=== PATIENT | female | born 1975 | race Caucasian/White ===

== ENCOUNTER 2022-09-17 13:57 | Outpatient (REF) | payer OTHER, MEDICAID, SELFPAY ==
--- NOTE | ~2022-09-17 | MR_ITS ---
EXAMINATION: MR BRAIN WITHOUT CONTRAST CLINICAL INFORMATION: Epilepsy COMPARISON: MRI of the brain with and without contrast 05/30/2017 TECHNIQUE: Multiplanar multisequence MR imaging of the brain was obtained without intravenous contrast. FINDINGS: There is no acute infarct on diffusion-weighted imaging. There is no intracranial hemorrhage on iron-sensitive imaging. No extra-axial collection or mass effect/herniation. Normal parenchymal signal characteristics. No hydrocephalus. The ventricles are normal in morphology and size. The major flow voids at the skull base are preserved. The hippocampi are symmetric in size, contour, and signal intensity, demonstrating no convincing imaging evidence of mesial temporal sclerosis. The temporal horns appear symmetric. The midline structures are normal. The cerebellar tonsils are normally positioned. The craniocervical junction is normal. Marrow signal is within normal limits. The visualized soft tissues are without significant abnormality. No signal abnormality within the paranasal sinuses or within the mastoid air cells. MR/MR head/brain wo con IMPRESSION: Unremarkable noncontrast MRI of the brain.
== END 2022-09-17 13:58 | disposition home or self-care (01) ==
LOC: HO.MRI 13:57
PROVIDERS: Visit Provider Psychiatry & Neurology Neurology
DX: G40.909 Epilepsy, unspecified, not intractable, without status epilepticus (principal)
CPT/HCPCS: 70551

== ENCOUNTER 2023-01-16 13:14 | Emergency (ER) | payer OTHER, MEDICAID, SELFPAY ==
--- NOTE | ~2023-01-16 | XR_ITS ---
EXAMINATION: XR CHEST CLINICAL INFORMATION: Chest pain COMPARISON: None available. TECHNIQUE: Frontal view of the chest was obtained. FINDINGS: The lungs are well expanded. There is no focal consolidation, edema, or effusion. No pneumothorax. The cardiomediastinal silhouette is within normal limits. No acute osseous abnormality. XR/XR chest 1V IMPRESSION: No acute pulmonary disease.
--- NOTE | 2023-01-16 13:18 | ECG_ITS ---
Test Reason : cp Blood Pressure : / mmHG Vent. Rate : 092 BPM Atrial Rate : 092 BPM P-R Int : 136 ms QRS Dur : 086 ms QT Int : 596 ms P-R-T Axes : 038 068 -03 degrees QTc Int : 737 ms Normal sinus rhythm T wave abnormality, consider inferior ischemia Prolonged QT Abnormal ECG No previous ECGs available Referred By: Generic ED Physician Electronically Signed By:Linden Taylor
--- NOTE | 2023-01-16 13:25 | ED.GENADULT ---
HPI - General Adult General Chief complaint: Chest Pain <SANDIE Wu - Last Filed: 01/16/23 13:30> Stated complaint: Seizures/Chest pain <SANDIE Wu - Last Filed: 01/16/23 13:30> Time Seen by Provider: 01/16/23 15:51 <SANDIE Wu - Last Filed: 01/16/23 13:30> Source: patient <Maribel Archer MD - Last Filed: 01/16/23 21:52> Mode of arrival: ambulatory <Maribel Archer MD - Last Filed: 01/16/23 21:52> Limitations: no limitations <Maribel Archer MD - Last Filed: 01/16/23 21:52> History of Present Illness HPI narrative: Patient comes to the emergency room complaining of 2 seizures that she had yesterday. Patient states that yesterday she had 2 seizures at home and she had fecal incontinence. Patient takes Keppra. Patient is supposed to be taking 750 mg b.i.d., but because this does makes her drowsy, she only takes 750 mg once a day. Patient denies head injury or falling. Patient states that her children were able to catch her before she fell to the ground. <Maribel Archer MD - Last Filed: 01/16/23 21:52> Related Data Allergies/adverse reactions: Allergies Allergy/AdvReac Type Severity Reaction Status Date / Time sulfamethoxazole Allergy Hives Verified 01/16/23 13:26 [From Bactrim] trimethoprim [From Bactrim] Allergy Hives Verified 01/16/23 13:26 <SANDIE Wu - Last Filed: 01/16/23 13:30> Review of Systems Review of Systems: Constitutional : No Weight loss, No Fever, No Chills, No Night Sweats, No Fatigue, No Malaise, feeling groggy ENT/Mouth : No Hearing loss, No Ear Pain, No Nasal Congestion, No Sinus Pain, No Hoarseness, No sore throat, No Rhinorrhea, No Swallowing Difficulty Eyes: No Eye Pain, No Swelling, No Redness, No Foreign Body, No Discharge, No Vision Changes Cardiovascular : No Chest Pain, No SOB, No Dyspnea on Exertion, No Orthopnea, No Edema, No Palpitations Respiratory : No Cough, No Sputum, No Wheezing, No Smoke Exposure, No Dyspnea Gastrointestinal : No Nausea, No Vomiting, No Diarrhea, No Constipation, No abdominal Pain, No Hematochezia, No Melena Genitourinary : no irregular bleeding, No Dysuria, No Urinary Frequency, No Hematuria, No Urinary Incontinence, No Urgency, No Flank Pain, No Urinary Flow Changes, No Hesitancy Musculoskeletal : No joint pain, No Myalgias, No Joint Swelling Skin : No Skin Lesions, No rash Neuro : No Weakness, No Numbness, No Paresthesias, , patient complaining of 2 seizures yesterday Psych : No Anxiety/Panic, No Depression, No SI/HI/AH/VH, No Social Issues, Heme/Lymph: No Bruising, No Bleeding,No Lymphadenopathy Endocrine : No Polyuria, No Polydipsia, No Temperature Intolerance <Maribel Archer MD - Last Filed: 01/16/23 21:52> [facility] Past Medical History Medical History: Medical History Epilepsy <SANDIE Wu - Last Filed: 01/16/23 13:30> Social History Social History: Social History (System 09/25/22 @ 14:45 by Inessa Carrion) Alcohol intake: current Alcohol intake frequency: holidays/special occasions only Smoked in Last 30 Days: Yes Use of substances other than those prescribed or required for medical reasons: No Advance Directives: No Advance Directives Information Provided: Yes Patient : No <SANDIE Wu - Last Filed: 01/16/23 13:30> Physical Exam ED Vital Signs: Vital Signs - 24 hr 01/16/23 13:27 01/16/23 14:03 01/16/23 16:18 Temperature 98 F 98.4 F Pulse Rate 92 71 68 Respiratory Rate 19 15 18 Blood Pressure 134/83 119/71 121/78 Pulse Oximetry 97 98 99 Oxygen Delivery Method Room Air Room Air Room Air 01/16/23 18:40 Temperature 97.8 F Pulse Rate 69 Respiratory Rate 15 Blood Pressure 108/62 Pulse Oximetry 98 Oxygen Delivery Method Room Air BMI result Body Mass Index 32.4 <SANDIE Wu - Last Filed: 01/16/23 13:30> Vital Signs - 24 hr 01/16/23 13:27 01/16/23 14:03 01/16/23 16:18 Temperature 98 F 98.4 F Pulse Rate 92 71 68 Respiratory Rate 19 15 18 Blood Pressure 134/83 119/71 121/78 Pulse Oximetry 97 98 99 Oxygen Delivery Method Room Air Room Air Room Air 01/16/23 18:40 Temperature 97.8 F Pulse Rate 69 Respiratory Rate 15 Blood Pressure 108/62 Pulse Oximetry 98 Oxygen Delivery Method Room Air BMI result Body Mass Index 32.4 <Maribel Archer MD - Last Filed: 01/16/23 21:52> Const Other: Appearance: Alert. Oriented X3. No acute distress. Eyes: Pupils equal, round and reactive to light. ENT: Pharynx normal. Neck: Normal inspection. Neck supple. No lymph nodes noted. No crepitus CVS: Normal heart rate and rhythm. Pulses normal. Normal S1 and S2 Respiratory: No respiratory distress. Breath sounds normal. No Wheezing. No rales Abdomen: Soft and nontender. No rigidity. No distention. Skin: Skin warm and dry. Normal skin color. Normal skin turgor. Extremities: No lower extremity edema. No Lacerations. No Rash Neuro: Oriented X 3. No motor deficit. No sensory deficit. Moving all extremities. No slurred speech. CN 2 through 12 grossly intact Psych: calm, cooperative, normal affect <Maribel Archer MD - Last Filed: 01/16/23 21:52> Course Course Course Narrative: RME--47yo F w/PMHx seizures on Keppra c/o feeling shaky, chest tightness, and 2 seizures last night without head trauma. Admits to fecal incontinence assoc with episodes and N/V. Denies recent change in medications or med noncompliance. VSS, ambulating w/steady gait EKG, labs, CXR, COVID/FLU, Keppra level ordered <SANDIE Wu - Last Filed: 01/16/23 13:30> Medications Administered Discontinued Medications Generic Name Dose Route Start Last Admin Trade Name Freq PRN Reason Stop Dose Admin Magnesium Sulfate 2 gm in 50 mls @ 25 mls/hr 01/16/23 15:53 01/16/23 18:33 Magnesium Sulfate/H2o IV 01/16/23 17:52 Infused ONCE ONE Infusion Potassium Chloride 40 meq 01/16/23 15:53 01/16/23 16:08 Potassium Chloride Packet 20 Meq Packet PO 01/16/23 15:54 40 meq ONCE ONE Administration Potassium Chloride 40 meq 01/16/23 19:07 01/16/23 19:49 Potassium Chloride Packet 20 Meq Packet PO 01/16/23 19:08 40 meq ONCE ONE Administration <SANDIE Wu - Last Filed: 01/16/23 13:30> Medications Administered Discontinued Medications Generic Name Dose Route Start Last Admin Trade Name Flory PRN Reason Stop Dose Admin Magnesium Sulfate 2 gm in 50 mls @ 25 mls/hr 01/16/23 15:53 01/16/23 18:33 Magnesium Sulfate/H2o IV 01/16/23 17:52 Infused ONCE ONE Infusion Potassium Chloride 40 meq 01/16/23 15:53 01/16/23 16:08 Potassium Chloride Packet 20 Meq Packet PO 01/16/23 15:54 40 meq ONCE ONE Administration Potassium Chloride 40 meq 01/16/23 19:07 01/16/23 19:49 Potassium Chloride Packet 20 Meq Packet PO 01/16/23 19:08 40 meq ONCE ONE Administration <Maribel Archer MD - Last Filed: 01/16/23 21:52> Medical Decision Making Medical Decision Making MDM Narrative: -Keppra levels will not be back today, patient will have to follow up with Dr. Khoury who is her neurologist -I discussed the patient with Dr. Khoury, he urges the patient to take the medications as indicated, patient is to go on 750 mg b.i.d. -patient's potassium 3.1, patient given p.o. potassium. When patient's labs were checked a 2nd time, potassium decreased to 3.0. Patient getting more p.o. potassium, magnesium stable. -1st EKG, QTC was 737, patient had no symptoms. Patient was given IV Magnesium, QTC improved to 488 -patient was given the 1st dose of Keppra 750 mg. -patient states that she has enough tablets of 750, states she does not require additional prescriptions. <Maribel Archer MD - Last Filed: 01/16/23 21:52> Differential Diagnosis Differential Diagnoses: The differential diagnosis associated with the presentation includes <Maribel Archer MD - Last Filed: 01/16/23 21:52> Consult Healthcare Provider Management of the patient was discussed with: Classroom Technology Technician <Maribel Archer MD - Last Filed: 01/16/23 21:52> Lab Data MDM Lab Attestation statement: I reviewed the patient's lab results. <Maribel Archer MD - Last Filed: 01/16/23 21:52> Result Diagrams: 01/16/23 13:38 01/16/23 18:31 <SANDIE Wu - Last Filed: 01/16/23 13:30> Labs: Lab Results 01/16/23 01/16/23 01/16/23 Range/Units 13:38 13:38 13:38 WBC 7.4 (4.8-10.8) X10*3/uL RBC 5.56 H (4.20-5.50) X10*6/uL Hgb 15.3 (12.0-16.0) g/dl Hct 46.2 (37.0-47.0) % MCV 83.1 (80.0-98.0) fL MCH 27.5 (27.0-33.0) pg MCHC 33.1 (31.0-35.0) g/dl RDW 13.3 (11.0-16.0) % Plt Count 316 (160-400) X10*3/uL MPV 10.0 (9.4-12.3) fL Immature Gran % (Auto) 0.3 (0.0-0.4) % Neut % (Auto) 44.4 L (45-73) % Lymph % (Auto) 50.1 H (20-40) % [place] % (Auto) 4.2 (2-11) % Eos % (Auto) 0.5 (0-4) % Baso % (Auto) 0.5 (0-2) % Lymph # (Auto) 3.7 (1.2-4.9) X10*3/uL [place] # (Auto) 0.3 (0.1-1.2) X10*3/uL Eos # (Auto) 0.0 (0.0-0.4) X10*3/uL Baso # (Auto) 0.0 (0.0-0.2) X10*3/uL Abs Immat Gran (auto) 0.02 (0.00-0.03) X10*3/uL Absolute Neuts (auto) 3.3 (2.0-8.3) x10*3/uL Absolute Nucleated RBC 0.000 (0.0-0.012) X10*3/uL Nucleated RBC % (auto) 0.0 (0.0-0.2) /100WBC Sodium 139 (135-145) mmol/L Potassium 3.1 L (3.3-5.1) mmol/L Chloride 100 (96-108) mmol/L Carbon Dioxide 28 (22-29) mmol/L Anion Gap 14 (12-20) BUN 17 H (9-16) mg/dL Creatinine 0.81 (0.5-1.4) mg/dL Estim Creat Clear Calc 91.9 Estimated GFR > 60 Random Glucose 131 H (60-115) mg/dL Calcium 9.9 (8.4-10.2) mg/dL Magnesium 2.1 (1.6-2.6) mg/dL Total Bilirubin 1.2 H (0.0-1.0) mg/dL Direct Bilirubin 0.2 (0.0-0.5) mg/dL AST 17 (5-31) U/L ALT 15 (0-31) U/L Alkaline Phosphatase 94 (39-117) U/L Troponin I High Sens < 3.5 (<3.5-17.0) ng/L Total Protein 7.9 (6.5-8.0) g/dL Albumin 5.0 (3.5-5.0) g/dL Urine Color Urine Appearance Urine pH (5.0-9.0) Ur Specific [place] (1.005-1.025) Urine Protein (Neg-Trace) mg/dL Urine Glucose (UA) (Negative) mg/dL Urine Ketones (Negative) mg/dL Urine Blood (Negative) Urine Nitrite (Negative) Ur Leukocyte Esterase (Negative) Urine RBC (0-2) /HPF Urine WBC (0-5) /HPF Ur Squamous Epith Cells (0-2) /HPF Urine Bacteria (None Seen) Hyaline Casts (0-2) /LPF Urine Test (NEGATIVE) COVID-19 (JUAN DAVID) (Negative) COVID-19 Clin Com Influenza Type A (JEREMY) (Negative) Influenza Type B (JEREMY) (Negative) Influenza A & B Note 01/16/23 01/16/23 01/16/23 Range/Units 13:38 13:38 14:00 WBC (4.8-10.8) X10*3/uL RBC (4.20-5.50) X10*6/uL Hgb (12.0-16.0) g/dl Hct (37.0-47.0) % MCV (80.0-98.0) fL MCH (27.0-33.0) pg MCHC (31.0-35.0) g/dl RDW (11.0-16.0) % Plt Count (160-400) X10*3/uL MPV (9.4-12.3) fL Immature Gran % (Auto) (0.0-0.4) % Neut % (Auto) (45-73) % Lymph % (Auto) (20-40) % [place] % (Auto) (2-11) % Eos % (Auto) (0-4) % Baso % (Auto) (0-2) % Lymph # (Auto) (1.2-4.9) X10*3/uL [place] # (Auto) (0.1-1.2) X10*3/uL Eos # (Auto) (0.0-0.4) X10*3/uL Baso # (Auto) (0.0-0.2) X10*3/uL Abs Immat Gran (auto) (0.00-0.03) X10*3/uL Absolute Neuts (auto) (2.0-8.3) x10*3/uL Absolute Nucleated RBC (0.0-0.012) X10*3/uL Nucleated RBC % (auto) (0.0-0.2) /100WBC Sodium (135-145) mmol/L Potassium (3.3-5.1) mmol/L Chloride (96-108) mmol/L Carbon Dioxide (22-29) mmol/L Anion Gap (12-20) BUN (9-16) mg/dL Creatinine (0.5-1.4) mg/dL Estim Creat Clear Calc Estimated GFR Random Glucose (60-115) mg/dL Calcium (8.4-10.2) mg/dL Magnesium (1.6-2.6) mg/dL Total Bilirubin (0.0-1.0) mg/dL Direct Bilirubin (0.0-0.5) mg/dL AST (5-31) U/L ALT (0-31) U/L Alkaline Phosphatase (39-117) U/L Troponin I High Sens (<3.5-17.0) ng/L Total Protein (6.5-8.0) g/dL Albumin (3.5-5.0) g/dL Urine Color Yellow Urine Appearance Clear Urine pH 6.0 (5.0-9.0) Ur Specific [place] 1.020 (1.005-1.025) Urine Protein Negative (Neg-Trace) mg/dL Urine Glucose (UA) Negative (Negative) mg/dL Urine Ketones Negative (Negative) mg/dL Urine Blood Small (1+) H (Negative) Urine Nitrite Negative (Negative) Ur Leukocyte Esterase Negative (Negative) Urine RBC 3-5 H (0-2) /HPF Urine WBC 0-5 (0-5) /HPF Ur Squamous Epith Cells 3-5 (0-2) /HPF Urine Bacteria Trace (None Seen) Hyaline Casts 0-2 (0-2) /LPF Urine Test (NEGATIVE) COVID-19 (JUAN DAVID) Negative (Negative) COVID-19 Clin Com See Note Influenza Type A (JEREMY) Negative (Negative) Influenza Type B (JEREMY) Negative (Negative) Influenza A & B Note See Note 01/16/23 01/16/23 01/16/23 Range/Units 14:00 18:31 21:12 WBC (4.8-10.8) X10*3/uL RBC (4.20-5.50) X10*6/uL Hgb (12.0-16.0) g/dl Hct (37.0-47.0) % MCV (80.0-98.0) fL MCH (27.0-33.0) pg MCHC (31.0-35.0) g/dl RDW (11.0-16.0) % Plt Count (160-400) X10*3/uL MPV (9.4-12.3) fL Immature Gran % (Auto) (0.0-0.4) % Neut % (Auto) (45-73) % Lymph % (Auto) (20-40) % [place] % (Auto) (2-11) % Eos % (Auto) (0-4) % Baso % (Auto) (0-2) % Lymph # (Auto) (1.2-4.9) X10*3/uL [place] # (Auto) (0.1-1.2) X10*3/uL Eos # (Auto) (0.0-0.4) X10*3/uL Baso # (Auto) (0.0-0.2) X10*3/uL Abs Immat Gran (auto) (0.00-0.03) X10*3/uL Absolute Neuts (auto) (2.0-8.3) x10*3/uL Absolute Nucleated RBC (0.0-0.012) X10*3/uL Nucleated RBC % (auto) (0.0-0.2) /100WBC Sodium 139 139 (135-145) mmol/L Potassium 3.0 L 3.7 D (3.3-5.1) mmol/L Chloride 102 103 (96-108) mmol/L Carbon Dioxide 24 25 (22-29) mmol/L Anion Gap 16 15 (12-20) BUN 18 H 21 H (9-16) mg/dL Creatinine 0.79 0.69 (0.5-1.4) mg/dL Estim Creat Clear Calc 94.3 107.9 Estimated GFR > 60 > 60 Random Glucose 117 H 97 (60-115) mg/dL Calcium 9.4 9.2 (8.4-10.2) mg/dL Magnesium (1.6-2.6) mg/dL Total Bilirubin (0.0-1.0) mg/dL Direct Bilirubin (0.0-0.5) mg/dL AST (5-31) U/L ALT (0-31) U/L Alkaline Phosphatase (39-117) U/L Troponin I High Sens (<3.5-17.0) ng/L Total Protein (6.5-8.0) g/dL Albumin (3.5-5.0) g/dL Urine Color Urine Appearance Urine pH (5.0-9.0) Ur Specific [place] (1.005-1.025) Urine Protein (Neg-Trace) mg/dL Urine Glucose (UA) (Negative) mg/dL Urine Ketones (Negative) mg/dL Urine Blood (Negative) Urine Nitrite (Negative) Ur Leukocyte Esterase (Negative) Urine RBC (0-2) /HPF Urine WBC (0-5) /HPF Ur Squamous Epith Cells (0-2) /HPF Urine Bacteria (None Seen) Hyaline Casts (0-2) /LPF Urine Test NEGATIVE (NEGATIVE) COVID-19 (JUAN DAVID) (Negative) COVID-19 Clin Com Influenza Type A (JEREMY) (Negative) Influenza Type B (JEREMY) (Negative) Influenza A & B Note <SANDIE Wu - Last Filed: 01/16/23 13:30> Lab Results 01/16/23 01/16/23 01/16/23 Range/Units 13:38 13:38 13:38 WBC 7.4 (4.8-10.8) X10*3/uL RBC 5.56 H (4.20-5.50) X10*6/uL Hgb 15.3 (12.0-16.0) g/dl Hct 46.2 (37.0-47.0) % MCV 83.1 (80.0-98.0) fL MCH 27.5 (27.0-33.0) pg MCHC 33.1 (31.0-35.0) g/dl RDW 13.3 (11.0-16.0) % Plt Count 316 (160-400) X10*3/uL MPV 10.0 (9.4-12.3) fL Immature Gran % (Auto) 0.3 (0.0-0.4) % Neut % (Auto) 44.4 L (45-73) % Lymph % (Auto) 50.1 H (20-40) % [place] % (Auto) 4.2 (2-11) % Eos % (Auto) 0.5 (0-4) % Baso % (Auto) 0.5 (0-2) % Lymph # (Auto) 3.7 (1.2-4.9) X10*3/uL [place] # (Auto) 0.3 (0.1-1.2) X10*3/uL Eos # (Auto) 0.0 (0.0-0.4) X10*3/uL Baso # (Auto) 0.0 (0.0-0.2) X10*3/uL Abs Immat Gran (auto) 0.02 (0.00-0.03) X10*3/uL Absolute Neuts (auto) 3.3 (2.0-8.3) x10*3/uL Absolute Nucleated RBC 0.000 (0.0-0.012) X10*3/uL Nucleated RBC % (auto) 0.0 (0.0-0.2) /100WBC Sodium 139 (135-145) mmol/L Potassium 3.1 L (3.3-5.1) mmol/L Chloride 100 (96-108) mmol/L Carbon Dioxide 28 (22-29) mmol/L Anion Gap 14 (12-20) BUN 17 H (9-16) mg/dL Creatinine 0.81 (0.5-1.4) mg/dL Estim Creat Clear Calc 91.9 Estimated GFR > 60 Random Glucose 131 H (60-115) mg/dL Calcium 9.9 (8.4-10.2) mg/dL Magnesium 2.1 (1.6-2.6) mg/dL Total Bilirubin 1.2 H (0.0-1.0) mg/dL Direct Bilirubin 0.2 (0.0-0.5) mg/dL AST 17 (5-31) U/L ALT 15 (0-31) U/L Alkaline Phosphatase 94 (39-117) U/L Troponin I High Sens < 3.5 (<3.5-17.0) ng/L Total Protein 7.9 (6.5-8.0) g/dL Albumin 5.0 (3.5-5.0) g/dL Urine Color Urine Appearance Urine pH (5.0-9.0) Ur Specific [place] (1.005-1.025) Urine Protein (Neg-Trace) mg/dL Urine Glucose (UA) (Negative) mg/dL Urine Ketones (Negative) mg/dL Urine Blood (Negative) Urine Nitrite (Negative) Ur Leukocyte Esterase (Negative) Urine RBC (0-2) /HPF Urine WBC (0-5) /HPF Ur Squamous Epith Cells (0-2) /HPF Urine Bacteria (None Seen) Hyaline Casts (0-2) /LPF Urine Test (NEGATIVE) COVID-19 (JUAN DAVID) (Negative) COVID-19 Clin Com Influenza Type A (JEREMY) (Negative) Influenza Type B (JEREMY) (Negative) Influenza A & B Note 01/16/23 01/16/23 01/16/23 Range/Units 13:38 13:38 14:00 WBC (4.8-10.8) X10*3/uL RBC (4.20-5.50) X10*6/uL Hgb (12.0-16.0) g/dl Hct (37.0-47.0) % MCV (80.0-98.0) fL MCH (27.0-33.0) pg MCHC (31.0-35.0) g/dl RDW (11.0-16.0) % Plt Count (160-400) X10*3/uL MPV (9.4-12.3) fL Immature Gran % (Auto) (0.0-0.4) % Neut % (Auto) (45-73) % Lymph % (Auto) (20-40) % [place] % (Auto) (2-11) % Eos % (Auto) (0-4) % Baso % (Auto) (0-2) % Lymph # (Auto) (1.2-4.9) X10*3/uL [place] # (Auto) (0.1-1.2) X10*3/uL Eos # (Auto) (0.0-0.4) X10*3/uL Baso # (Auto) (0.0-0.2) X10*3/uL Abs Immat Gran (auto) (0.00-0.03) X10*3/uL Absolute Neuts (auto) (2.0-8.3) x10*3/uL Absolute Nucleated RBC (0.0-0.012) X10*3/uL Nucleated RBC % (auto) (0.0-0.2) /100WBC Sodium (135-145) mmol/L Potassium (3.3-5.1) mmol/L Chloride (96-108) mmol/L Carbon Dioxide (22-29) mmol/L Anion Gap (12-20) BUN (9-16) mg/dL Creatinine (0.5-1.4) mg/dL Estim Creat Clear Calc Estimated GFR Random Glucose (60-115) mg/dL Calcium (8.4-10.2) mg/dL Magnesium (1.6-2.6) mg/dL Total Bilirubin (0.0-1.0) mg/dL Direct Bilirubin (0.0-0.5) mg/dL AST (5-31) U/L ALT (0-31) U/L Alkaline Phosphatase (39-117) U/L Troponin I High Sens (<3.5-17.0) ng/L Total Protein (6.5-8.0) g/dL Albumin (3.5-5.0) g/dL Urine Color Yellow Urine Appearance Clear Urine pH 6.0 (5.0-9.0) Ur Specific [place] 1.020 (1.005-1.025) Urine Protein Negative (Neg-Trace) mg/dL Urine Glucose (UA) Negative (Negative) mg/dL Urine Ketones Negative (Negative) mg/dL Urine Blood Small (1+) H (Negative) Urine Nitrite Negative (Negative) Ur Leukocyte Esterase Negative (Negative) Urine RBC 3-5 H (0-2) /HPF Urine WBC 0-5 (0-5) /HPF Ur Squamous Epith Cells 3-5 (0-2) /HPF Urine Bacteria Trace (None Seen) Hyaline Casts 0-2 (0-2) /LPF Urine Test (NEGATIVE) COVID-19 (JUAN DAVID) Negative (Negative) COVID-19 Clin Com See Note Influenza Type A (JEREMY) Negative (Negative) Influenza Type B (JEREMY) Negative (Negative) Influenza A & B Note See Note 01/16/23 01/16/23 01/16/23 Range/Units 14:00 18:31 21:12 WBC (4.8-10.8) X10*3/uL RBC (4.20-5.50) X10*6/uL Hgb (12.0-16.0) g/dl Hct (37.0-47.0) % MCV (80.0-98.0) fL MCH (27.0-33.0) pg MCHC (31.0-35.0) g/dl RDW (11.0-16.0) % Plt Count (160-400) X10*3/uL MPV (9.4-12.3) fL Immature Gran % (Auto) (0.0-0.4) % Neut % (Auto) (45-73) % Lymph % (Auto) (20-40) % [place] % (Auto) (2-11) % Eos % (Auto) (0-4) % Baso % (Auto) (0-2) % Lymph # (Auto) (1.2-4.9) X10*3/uL [place] # (Auto) (0.1-1.2) X10*3/uL Eos # (Auto) (0.0-0.4) X10*3/uL Baso # (Auto) (0.0-0.2) X10*3/uL Abs Immat Gran (auto) (0.00-0.03) X10*3/uL Absolute Neuts (auto) (2.0-8.3) x10*3/uL Absolute Nucleated RBC (0.0-0.012) X10*3/uL Nucleated RBC % (auto) (0.0-0.2) /100WBC Sodium 139 139 (135-145) mmol/L Potassium 3.0 L 3.7 D (3.3-5.1) mmol/L Chloride 102 103 (96-108) mmol/L Carbon Dioxide 24 25 (22-29) mmol/L Anion Gap 16 15 (12-20) BUN 18 H 21 H (9-16) mg/dL Creatinine 0.79 0.69 (0.5-1.4) mg/dL Estim Creat Clear Calc 94.3 107.9 Estimated GFR > 60 > 60 Random Glucose 117 H 97 (60-115) mg/dL Calcium 9.4 9.2 (8.4-10.2) mg/dL Magnesium (1.6-2.6) mg/dL Total Bilirubin (0.0-1.0) mg/dL Direct Bilirubin (0.0-0.5) mg/dL AST (5-31) U/L ALT (0-31) U/L Alkaline Phosphatase (39-117) U/L Troponin I High Sens (<3.5-17.0) ng/L Total Protein (6.5-8.0) g/dL Albumin (3.5-5.0) g/dL Urine Color Urine Appearance Urine pH (5.0-9.0) Ur Specific [place] (1.005-1.025) Urine Protein (Neg-Trace) mg/dL Urine Glucose (UA) (Negative) mg/dL Urine Ketones (Negative) mg/dL Urine Blood (Negative) Urine Nitrite (Negative) Ur Leukocyte Esterase (Negative) Urine RBC (0-2) /HPF Urine WBC (0-5) /HPF Ur Squamous Epith Cells (0-2) /HPF Urine Bacteria (None Seen) Hyaline Casts (0-2) /LPF Urine Test NEGATIVE (NEGATIVE) COVID-19 (JUAN DAVID) (Negative) COVID-19 Clin Com Influenza Type A (JEREMY) (Negative) Influenza Type B ([place]ER[facility]Y) (Negative) Influenza A & B Note <Maribel Archer MD - Last Filed: 01/16/23 21:52> Discharge Plan Discharge Clinical Impression: Seizures, Acute hypokalemia <SANDIE Wu - Last Filed: 01/16/23 13:30> Patient Disposition: Home, Self-Care <SANDIE Wu - Last Filed: 01/16/23 13:30> Instructions: Epilepsy (ED), Hypokalemia (ED) <SANDIE Wu - Last Filed: 01/16/23 13:30> Additional Instructions: Please follow-up with your primary care physician tomorrow. If you have any worsening or new symptoms, please return to the emergency room or call 911 <SANDIE Wu - Last Filed: 01/16/23 13:30>
[2023-01-16 13:27] VITALS: BP 134/83; PULSE 92; RESP 19; TEMP 36.6; O2SAT 97; BMI 32.4
--- NOTE | 2023-01-16 13:28 | ECG_ITS ---
Test Reason : REPEAT/CHECK QTC Blood Pressure : / mmHG Vent. Rate : 069 BPM Atrial Rate : 069 BPM P-R Int : 212 ms QRS Dur : 096 ms QT Int : 456 ms P-R-T Axes : 062 067 034 degrees QTc Int : 488 ms Sinus rhythm with 1st degree A-V block Prolonged QT Abnormal ECG When compared with ECG of 16-JAN-2023 13:18, IA interval has increased Nonspecific T wave abnormality has replaced inverted T waves in Inferior leads Nonspecific T wave abnormality no longer evident in Lateral leads QT has shortened Referred By: Maribel Archer Electronically Signed By:Linden Taylor
[2023-01-16 13:47] LABS: MANUAL DIFF FLAG NO
[2023-01-16 13:48] LABS: Basophils Percent Auto 0.5 % (0-2); Eosinophils Percent Auto 0.5 % (0-4); Hematocrit 46.2 % (37.0-47.0); Hemoglobin 15.3 g/dl (12.0-16.0); Imm Gran Abs Auto 0.02 X10*3/uL (0.00-0.03); Imm Gran Pct Auto 0.3 % (0.0-0.4); Lymphocytes Absolute Auto 3.7 X10*3/uL (1.2-4.9); Lymphocytes Percent Auto 50.1 % (20-40); Mean Corpuscular HGB Conc 33.1 g/dl (31.0-35.0); Mean Corpuscular Hemoglobin 27.5 pg (27.0-33.0); Mean Corpuscular Volume 83.1 fL (80.0-98.0); Monocytes Absolute Auto 0.3 X10*3/uL (0.1-1.2); Monocytes Percent Auto 4.2 % (2-11); Neutrophils Absolute Auto 3.3 x10*3/uL (2.0-8.3); Neutrophils Percent Auto 44.4 % (45-73); Platelet Count 316 X10*3/uL (160-400); Red Blood Count 5.56 X10*6/uL (4.20-5.50); Red Cell Distribution Width 13.3 % (11.0-16.0); White Blood Count 7.4 X10*3/uL (4.8-10.8)
[2023-01-16 14:03] VITALS: BP 119/71; PULSE 71; RESP 15; TEMP 36.9; O2SAT 98
[2023-01-16 14:07] LABS: Alanine Aminotransferase 15 U/L (0-31); Alkaline Phosphatase 94 U/L (39-117); Anion Gap 14 (12-20); Aspartate Amino Transferase 17 U/L (5-31); Bilirubin Direct 0.2 mg/dL (0.0-0.5); Bilirubin Total 1.2 mg/dL (0.0-1.0); Blood Urea Nitrogen 17 mg/dL (9-16); Calcium 9.9 mg/dL (8.4-10.2); Carbon Dioxide 28 mmol/L (22-29); Chloride 100 mmol/L (96-108); Creatinine Clr Calc Pharmacy 91.9; Estimated Glomerular Filt Rate > 60; Glucose Random 131 mg/dL (60-115); Magnesium 2.1 mg/dL (1.6-2.6); Potassium 3.1 mmol/L (3.3-5.1); Sodium 139 mmol/L (135-145); Total Protein 7.9 g/dL (6.5-8.0)
[2023-01-16 14:12] LABS: COVID-19 Test Negative (Negative); IDNOW Serial# 08D9AD1C; IDNOW Serial# 9DB6401D; Influenza A Negative (Negative); Influenza B2 Negative (Negative)
[2023-01-16 14:14] LABS: Appearance Urine Clear; Color Urine Yellow; Glucose Urine UA Negative (Negative); Leukocyte Esterase Urine Negative (Negative); Nitrite Urine Negative (Negative); UMIC TRIGGER UACC YES; Urine Blood Small (1+) (Negative); Urine Ketones Negative (Negative); Urine Protein Negative (Neg-Trace)
[2023-01-16 14:15] LABS: Troponin-I High Sensitivity < 3.5 ng/L (<3.5-17.0)
[2023-01-16 14:17] LABS: UPreg QC Valid YES; Urine Pregnancy NEGATIVE (NEGATIVE)
[2023-01-16 14:25] LABS: Bacteria Urine Trace (None Seen); Hyaline Casts Urine 0-2 /LPF (0-2); WBC Urine 0-5 /HPF (0-5)
[2023-01-16 14:38] VITALS: PULSE 72
[2023-01-16] MEDS: Potassium Chloride Packet 20 MEQ PACKET 40 MEQ PO ×2 (16:08→19:49)
[2023-01-16] MEDS: Magnesium Sulfate/H2O 2 GM/50 ML PIGGYBACK IV (16:13)
[2023-01-16 16:18] VITALS: BP 121/78; PULSE 68; RESP 18; O2SAT 99
[2023-01-16 18:40] VITALS: BP 108/62; PULSE 69; RESP 15; TEMP 36.6; O2SAT 98
[2023-01-16 18:52] LABS: Anion Gap 16 (12-20); Blood Urea Nitrogen 18 mg/dL (9-16); Calcium 9.4 mg/dL (8.4-10.2); Carbon Dioxide 24 mmol/L (22-29); Chloride 102 mmol/L (96-108); Creatinine Clr Calc Pharmacy 94.3; Estimated Glomerular Filt Rate > 60; Glucose Random 117 mg/dL (60-115); Sodium 139 mmol/L (135-145)
[2023-01-16 21:38] LABS: Anion Gap 15 (12-20); Blood Urea Nitrogen 21 mg/dL (9-16); Calcium 9.2 mg/dL (8.4-10.2); Carbon Dioxide 25 mmol/L (22-29); Chloride 103 mmol/L (96-108); Creatinine Clr Calc Pharmacy 107.9; Estimated Glomerular Filt Rate > 60; Glucose Random 97 mg/dL (60-115); Potassium 3.7 mmol/L (3.3-5.1); Sodium 139 mmol/L (135-145)
--- NOTE | 2023-01-16 21:58 | PC.NURSE ---
patient reports feeling much better. pain resolved, potassium fixed. patient states she will take her keppra medication that she has that is prescribed to her rather than a dose here, MD aware. patient comfortable in no apparent distress at time of discharge.
[2023-01-21 13:33] LABS: Levetiracetam Keppra 17.6 mcg/mL (6.0-46.0)
== END 2023-01-16 22:07 | disposition home or self-care (01) ==
PROVIDERS: Physician Assistant; Emergency Provider Emergency Medicine
DX: G40.909 Epilepsy, unspecified, not intractable, without status epilepticus (principal); E87.6 Hypokalemia; Z20.822 Contact with and (suspected) exposure to COVID-19; Z79.899 Other long term (current) drug therapy
CPT/HCPCS: 36415; 71045; 80048; 80076; 80177; 81001; 81025; 83735; 84484; 85025; 87502; 87635; 93005; 96365; 96366; 99284; 99285; J3475

== ENCOUNTER 2024-10-28 16:21 | Emergency (ER) | payer OTHER, SELFPAY ==
--- NOTE | ~2024-10-28 | XR_ITS ---
EXAMINATION: XR CHEST CLINICAL INFORMATION: cough COMPARISON: None available. TECHNIQUE: 2 views of the chest were obtained. FINDINGS: No significant abnormality is noted involving the heart, lungs, mediastinum, bony thorax or soft tissues. XR/XR chest 2V IMPRESSION: Unremarkable examination. Electronically signed by: Andreas Nix MD 10/28/2024 06:17 PM [facility] [place]
--- NOTE | 2024-10-28 16:29 | ECG_ITS ---
Test Reason : CP Blood Pressure : / mmHG Vent. Rate : 074 BPM Atrial Rate : 074 BPM P-R Int : 172 ms QRS Dur : 072 ms QT Int : 396 ms P-R-T Axes : 065 064 041 degrees QTc Int : 439 ms Normal sinus rhythm Possible Left atrial enlargement Borderline ECG When compared with ECG of 16-JAN-2023 18:19, LA interval has decreased QT has shortened Referred By: Maribel Archer Electronically Signed By:OLIVERIO MCLAIN MD
[2024-10-28 17:00] VITALS: BP 124/91; PULSE 77; RESP 18; TEMP 36.4; O2SAT 97; BMI 34.6
--- NOTE | 2024-10-28 17:04 | ED.GENADULT ---
HPI - General Adult General Chief complaint: Upper Respiratory Symptoms Stated complaint: chest pain, sob, cough Time Seen by Provider: 10/28/24 18:41 Source: patient Mode of arrival: ambulatory Limitations: no limitations History of Present Illness ED Provider: ray CHERRY narrative: Patient is a 49-year-old female presenting to the emergency department with complaint of cough, chest tightness, and shortness of breath for the past 2 weeks. Grandaughters were sick with similar symptoms. Then developed nausea, vomiting, and diarrhea over the past few days. Was able to tolerate fluids by mouth today. Complains of bilateral ear pain as well. Denies palpitations or calf swelling. complaint: cough, n/v/d Onset (ago): week(s) Related Data Previous Rx's ?Medication ?Instructions ?Recorded azithromycin 250 mg tablet See Rx Instructions PO .COMPLEX #6 10/28/24 tabs benzonatate 100 mg capsule 100 mg PO TID PRN cough #20 caps 10/28/24 ibuprofen 600 mg tablet 600 mg PO Q6H PRN fever or pain 10/28/24 #20 tabs ondansetron 4 mg disintegrating 4 mg PO Q8H PRN nausea and 10/28/24 tablet vomiting #10 tabs Allergies Allergy/AdvReac Type Severity Reaction Status Date / Time sulfamethoxazole Allergy Hives Verified 10/28/24 17:01 [From Bactrim] trimethoprim [From Bactrim] Allergy Hives Verified 10/28/24 17:01 Review of Systems Review of Systems: As per HPI. Yes all other systems are reviewed and are negative Constitutional: Constitutional: Reports as per HPI [facility] Past Medical History Medical History Epilepsy Social History Social History (System 09/25/22 @ 14:45 by Inessa Carrion) Alcohol intake: current Alcohol intake frequency: holidays/special occasions only Advance Directives: No Advance Directives Information Provided: Yes Physical Exam ED Vital Signs: Vital Signs - 24 hr 10/28/24 17:00 10/28/24 18:00 10/28/24 18:30 Temperature 97.6 F Pulse Rate 77 67 Respiratory Rate 18 18 Blood Pressure 124/91 H 146/98 H Pulse Oximetry 97 99 Oxygen Delivery Method Room Air Room Air BMI result Body Mass Index 34.6 Vital signs have been reviewed and appear to be correct. Blood pressure normal. Heart rate normal. Respiratory rate normal. Temperature normal. Oxygen saturation normal. Const General: cooperative, healthy appearing and no acute distress Orientation/consciousness: oriented to person, oriented to place, oriented to time and patient oriented x3 Limitations: no limitations HENMT Head: Yes normocephalic and Yes atraumatic Ears: external ears normal, EAC's normal, mastoids normal bilaterally, no periauricular adenopathy and TM abnormal bulging on the right, wth effusion serous bilateral and erythematous on the right General nose exam: Normal external nose present Face and sinus: Yes face symmetric Mouth: oropharynx normal and moist mucous membranes Throat: Yes uvula midline Eyes Pupils: Equal, round and reactive pupils present Neck Neck: Yes normal visual inspection and Yes supple Resp Effort & Inspection: normal respiratory effort and able to speak in complete sentences Auscultation: clear to auscultation bilaterally Cardio Rate: regular rate Rhythm: regular rhythm Heart sounds: S1 normal heart sound present and S2 normal heart sound present GI Palpation (GI): Soft to palpation and nontender Auscultation: normoactive bowel sounds General: Yes no CVA tenderness Back/Spine/Pelvis Back: no CVA tenderness Skin General skin exam: elasticity normal and turgor normal Neuro General: oriented to person, oriented to place, oriented to time, patient oriented x3, moves all extremities, no focal motor deficits and CN's II-XI intact bilaterally Cranial nerves: Yes Equal, round and reactive pupils present Cognition (Neuro): normal cognition Extrem General: Yes full ROM, Yes no pedal edema and Yes no calf tenderness Psych Mental Status: mental status grossly normal Affect: normal affect Thought process: Normal thought process present Course Course Course Narrative: RME, this is a rapid medical exam performed by Judson Hernández please refer to primary provider for complete H&P- 41 old female presents for evaluation of 2-1/2 weeks of cough, congestion, abdominal pain. She also complains of diarrhea. Her abdominal pain may be related to her persistent coughing for 2-1/2 weeks. Plan for labs, chest x-ray, viral swabs. Medical Decision Making Medical Decision Making MDM Narrative: Patient is a 49-year-old female presenting to the emergency department with complaint of cough, chest tightness, and shortness of breath for the past 2 weeks. On exam patient is awake, A+Ox3, VS WNL, afebrile, normal neurological exam without focal deficits, physical exam findings as above. Given reported symptoms and physical exam findings, initial differential includes but is not limited to viral illness, COVID, flu, RSV, otitis media, otitis externa, gastroenteritis. EKG shows normal sinus rhythm. Labs unremarkable. Viral serology notable for RSV. Physical exam findings notable for AOM of right ear. X-ray notable for no evidence of pneumonia. My interpretation is in agreement with the radiologist's interpretation. Will treat for AOM with azithromycin, will also send prescriptions for long as 8, Zofran and ibuprofen. Follow-up with PCP as needed. Return precautions discussed at bedside. Isolation precautions discussed regarding RSV, specifically that patient should avoid anyone immunocompromise, elderly, 's while symptomatic. Patient verbalized understanding of and agreement with plan. Differential Diagnosis Differential Diagnoses: The differential diagnosis associated with the presentation includes As per [facility] Admission/Observation Consideration of admission/observation: Escalation of care including admission/observation considered Patient would have been admitted to the hospital had their work up had any findings where hospital admission was appropriate and their clinical presentation warranted hospital admission. Lab Data [facility] Lab Attestation statement: I reviewed the patient's lab results. As per [facility]. 10/28/24 17:08 10/28/24 17:07 Labs: Lab Results 10/28/24 10/28/24 Range/Units 17:07 17:08 WBC 6.9 (4.8-10.8) X10*3/uL RBC 5.25 (4.20-5.50) X10*6/uL Hgb 14.8 (12.0-16.0) g/dl Hct 45.2 (37.0-47.0) % MCV 86.1 (80.0-98.0) fL MCH 28.2 (27.0-33.0) pg MCHC 32.7 (31.0-35.0) g/dl RDW 13.9 (11.0-16.0) % Plt Count 248 (160-400) X10*3/uL MPV 10.4 (9.4-12.3) fL Immature Gran % (Auto) 0.1 (0.0-0.4) % Neut % (Auto) 46.8 (45-73) % Lymph % (Auto) 37.9 (20-40) % [place] % (Auto) 12.8 H (2-11) % Eos % (Auto) 1.7 (0-4) % Baso % (Auto) 0.7 (0-2) % Lymph # (Auto) 2.6 (1.2-4.9) X10*3/uL [place] # (Auto) 0.9 (0.1-1.2) X10*3/uL Eos # (Auto) 0.1 (0.0-0.4) X10*3/uL Baso # (Auto) 0.1 (0.0-0.2) X10*3/uL Abs Immat Gran (auto) 0.01 (0.00-0.03) X10*3/uL Absolute Neuts (auto) 3.2 (2.0-8.3) x10*3/uL Absolute Nucleated RBC 0.000 (0.0-0.012) X10*3/uL Nucleated RBC % (auto) 0.0 (0.0-0.2) /100WBC Sodium 139 (135-145) mmol/L Potassium 4.3 (3.3-5.1) mmol/L Chloride 109 H (96-108) mmol/L Carbon Dioxide 23 (22-29) mmol/L Anion Gap 11 L (12-20) BUN 12 (9-16) mg/dL Creatinine 0.75 (0.5-1.4) mg/dL Estim Creat Clear Calc 100.5 Estimated GFR > 60 Random Glucose 79 (60-115) mg/dL Calcium 9.4 (8.4-10.2) mg/dL Total Bilirubin 0.5 (0.0-1.0) mg/dL AST 21 (5-31) U/L ALT 18 (0-31) U/L Alkaline Phosphatase 105 (39-117) U/L Total Protein 7.5 (6.5-8.0) g/dL Albumin 4.4 (3.5-5.0) g/dL Influenza Type A (PCR) NEGATIVE (Negative) Influenza Type B (PCR) NEGATIVE (Negative) RSV RNA Qual (PCR) POSITIVE A (Negative) SARS-CoV-2 RNA (RT-PCR) NEGATIVE (Negative) Independent Interpretation I performed an independent interpretation of an: EKG (Normal sinus rhythm, rate 74 beats per minute, normal OH interval and QTC) and Plain X-Ray Interpretation: Goes to a nursing no evidence of pneumonia on chest x-ray Radiology Impression Discussion of test interpretation with radiology: I have reviewed the radiologist's reading. Radiologist Impression: XR/XR chest 2V IMPRESSION: Unremarkable examination. External Record Review External record reviewed: Inpatient record, Office record and Outpatient record Prescription Management I considered prescription management with: Pain Medication, Antibiotic and Other Discharge Plan Discharge Clinical Impression: RSV infection, Gastroenteritis, Otitis media Patient Disposition: Home, Self-Care Instructions: Respiratory Syncytial Virus (ED), Gastroenteritis (DC) Additional Instructions: You were evaluated in the emergency department today for cough, nausea, vomiting and diarrhea. You tested positive for RSV. Your physical exam shows an infection in your right ear. You are being treated with antibiotics for this. Complete the full course as prescribed. Your EKG and labs were reassuring. You are being prescribed ondansetron for nausea. You are being prescribed benzonatate for cough-KEEP THIS MEDICATION OUT OF THE REACH OF CHILDREN. While you have a cough and shortness of breath, you should avoid being around infants, the elderly, and anyone who is immunocompromized. Follow up with your primary care provider as needed. Return to the emergency department if you develop worsening pain, difficulty breathing, fever not improved with Tylenol/ibuprofen, or any other new or concerning symptoms. Prescriptions: New azithromycin 250 mg tablet See Rx Instructions .ROUTE .COMPLEX Qty: 6 0RF Rx Instructions: For 250 mg dose pack: take 500 mg today (day 1), then 250 mg for 4 days (days 2-5) benzonatate 100 mg capsule 100 mg PO TID PRN (Reason: cough) Qty: 20 0RF ondansetron 4 mg tablet,disintegrating 4 mg PO Q8H PRN (Reason: nausea and vomiting) Qty: 10 0RF ibuprofen 600 mg tablet 600 mg PO Q6H PRN (Reason: fever or pain) Qty: 20 0RF Print Language: Malawian
[2024-10-28 17:12] LABS: MANUAL DIFF FLAG NO
[2024-10-28 17:32] LABS: Alanine Aminotransferase 18 U/L (0-31); Albumin Level 4.4 g/dL (3.5-5.0); Alkaline Phosphatase 105 U/L (39-117); Anion Gap 11 (12-20); Aspartate Amino Transferase 21 U/L (5-31); Bilirubin Total 0.5 mg/dL (0.0-1.0); Blood Urea Nitrogen 12 mg/dL (9-16); Calcium 9.4 mg/dL (8.4-10.2); Carbon Dioxide 23 mmol/L (22-29); Chloride 109 mmol/L (96-108); Creatinine Clr Calc Pharmacy 100.5; Estimated Glomerular Filt Rate > 60; Glucose Random 79 mg/dL (60-115); Potassium 4.3 mmol/L (3.3-5.1); Sodium 139 mmol/L (135-145); Total Protein 7.5 g/dL (6.5-8.0)
[2024-10-28 17:34] LABS: Basophils Absolute Auto 0.1 X10*3/uL (0.0-0.2); Basophils Percent Auto 0.7 % (0-2); Eosinophils Absolute Auto 0.1 X10*3/uL (0.0-0.4); Eosinophils Percent Auto 1.7 % (0-4); Hematocrit 45.2 % (37.0-47.0); Hemoglobin 14.8 g/dl (12.0-16.0); Imm Gran Abs Auto 0.01 X10*3/uL (0.00-0.03); Imm Gran Pct Auto 0.1 % (0.0-0.4); Lymphocytes Absolute Auto 2.6 X10*3/uL (1.2-4.9); Lymphocytes Percent Auto 37.9 % (20-40); Mean Corpuscular HGB Conc 32.7 g/dl (31.0-35.0); Mean Corpuscular Hemoglobin 28.2 pg (27.0-33.0); Mean Corpuscular Volume 86.1 fL (80.0-98.0); Mean Platelet Volume 10.4 fL (9.4-12.3); Monocytes Absolute Auto 0.9 X10*3/uL (0.1-1.2); Monocytes Percent Auto 12.8 % (2-11); Neutrophils Absolute Auto 3.2 x10*3/uL (2.0-8.3); Neutrophils Percent Auto 46.8 % (45-73); Platelet Count 248 X10*3/uL (160-400); Red Blood Count 5.25 X10*6/uL (4.20-5.50); Red Cell Distribution Width 13.9 % (11.0-16.0); White Blood Count 6.9 X10*3/uL (4.8-10.8)
[2024-10-28 18:00] VITALS: PULSE 67; RESP 18; O2SAT 99
[2024-10-28 18:04] LABS: Influenza A PCR NEGATIVE (Negative); Influenza B PCR NEGATIVE (Negative); Resp Syncy Virus RNA Qual PCR POSITIVE (Negative); SARS COV2 PCR INHOUSE NEGATIVE (Negative)
[2024-10-28 18:30] VITALS: BP 146/98
[2024-10-28 19:20] VITALS: BP 146/98; PULSE 0; RESP 16; TEMP -17.7; TEMP 0
== END 2024-10-28 19:21 | disposition home or self-care (01) ==
PROVIDERS: Emergency Provider Emergency Medicine
DX: H65.93 Unspecified nonsuppurative otitis media, bilateral (principal); B97.4 Respiratory syncytial virus as the cause of diseases classified elsewhere; K52.9 Noninfective gastroenteritis and colitis, unspecified; R11.2 Nausea with vomiting, unspecified; R05.9 Cough, unspecified; R06.02 Shortness of breath; H92.03 Otalgia, bilateral; Z03.818 Encounter for observation for suspected exposure to other biological agents ruled out
CPT/HCPCS: 0241U; 71046; 80053; 85025; 93005; 99283; 99284

== ENCOUNTER → 2024-10-28 16:29 | Outpatient (BNV) | payer OTHER, SELFPAY | PROVIDERS: Emergency Provider Emergency Medicine; Visit Provider Internal Medicine Cardiovascular Disease | DX: R07.9 Chest pain, unspecified (principal) | CPT/HCPCS: 93010 ==

== ENCOUNTER 2025-05-30 14:38 | Outpatient (AMB) | payer OTHER, SELFPAY ==
--- OUTSIDE RECORDS SUMMARY | 2025-05-30 15:13 | XMS_ITS | Clinical Summary ---
Author Organization [facility] Address [address] [id number] Care Team Providers Care Terrazzo Polisher Name Role Phone Pedro Milan Primary Care Provid er Allergies Active Allergy Reactions Criticality Noted Date Comments Sulfamethoxazole-Trimethoprim Itching 2014 Medications Medication Sig Dispensed Refills Start Date End Date Status losartan (COZAAR) tablet 25 mg TAKE 1 AND 1/2 TABLET BY MOUTH EVERY DAY 0 06/24/2019 Active SUMAtriptan (IMITREX) 100 MG tablet May repeat dose once after 2 hours, if needed. 0 12/09/2014 Active amitriptyline (ELAVIL) 10 MG tablet Take 1 tablet (10 mg total) by mouth 2 (two) times a day. 0 11/20/2021 Active chlorthalidone (HYGROTON) 25 MG tablet Take 1 tablet (25 mg total) by mouth daily. 0 01/16/2022 Active propranolol (INDERAL LA) 80 MG 24 hr capsule 0 01/31/2022 Active metoclopramide (REGLAN) tablet 10 mg Take 1 tablet (10 mg total) by mouth daily as needed. for ROJAS 0 02/05/2022 Active rizatriptan (MAXALT) 10 MG tablet Take 1 tablet (10 mg total) by mouth daily. as directed 0 01/28/2022 Active meloxicam (MOBIC) 15 MG tablet TAKE 1 TABLET(15 MG) BY MOUTH DAILY 30 tablet 2 07/03/2022 Active Cholecalciferol (Vitamin D3) 50 MCG (1999 UT) TABS Take 1 tablet by mouth daily. 0 08/13/2022 Active levETIRAcetam (Keppra) 250 MG tablet Take 1 tablet (250 mg total) by mouth. 0 09/23/2022 Active nicotine (NICODERM CQ) 14 MG/24HR UNWRAP AND APPLY 1 PATCH ONTO SKIN EVERY DAY 0 09/30/2022 Active predniSONE (DELTASONE) tablet 20 mg Take 3 tabs for 3 days then take 2 tabs for 3 days then take 1 tab for 3 days 18 tablet 0 11/08/2022 Active levETIRAcetam (KEPPRA) 750 MG tablet Take 1 tablet (750 mg total) by mouth 2 (two) times a day. 0 Active zolpidem (AMBIEN) 5 MG tablet Take by mouth every night at bedtime as needed for sleep. 0 Active PARoxetine (PAXIL) 20 MG tablet Take 1 tablet (20 mg total) by mouth every morning. 0 Active Active Problems Problem Noted Date Diagnosed Date Trigger finger, left index finger 09/15/2019 Social History Tobacco Use Types Packs/Day Years Used Date Smoking Tobacco: Every Day Cigarettes Last attempted to quit: 08/2019 Smokeless Tobacco: Never Tobacco Cessation:Ready to Q uit: Not Asked; Counseling Given: Not Answered Alcohol Use Standard Drinks/Week Comments Yes 1 (1 standard drink = 0.6 oz pur e alcohol) Sex and Gender Information Value Date Recorded Sex Assigned at Not on file Gender Identity Not on file Sexual Orientation Not on file Job Start Date Occupation Industry Not on file Not on file Not on file Last Filed Vital Signs Vital Sign Reading Time Taken Comments Blood Pressure 126/81 03/01/2024 10:46 AM EDT Pulse 88 03/01/2024 10:46 AM EDT Temperature 36.7 C (98 F) 03/01/2024 10:46 AM EDT Respiratory Rate - - Oxygen Saturation 99% 03/01/2024 10:46 AM EDT Inhaled Oxygen Concentration - - Weight 81.6 kg (180 lb) 03/01/2024 10:46 AM EDT Height 162.6 cm (5' 4 ) 03/01/2024 10:46 AM EDT Body Mass Index 30.9 03/01/2024 10:46 AM EDT Plan of Treatment Health Maintenance Due Date Last Done Comments Hepatitis B Vaccines (1 of 3 - 3-dose series) 1976 Hepatitis C Screening 1976 Depression Screening 1988 BMI Counseling 1994 Preventative Health Evaluation 1994 Cervical Cancer Screening (Pap Smear) 1997 Pneumococcal Vaccine (2 of 2 - PCV) 05/12/2016 05/12/2015, 06/26/2008 Colon Cancer Screening (Colonoscopy) 2021 COVID-19 Vaccine (3 - 2023-2 5 season) 2024 01/09/2021, 12/19/2020 DTap / Tdap / Td (2 - Td or Tdap) 05/12/2025 05/12/2015 Influenza Vaccine (#1) 2025 RSV Ped < 20 months Aged Out No longe r eligible based on patient's age to complete this topic Care Teams Terrazzo Polisher Relationship Specialty Start Date End Date Pedro Milan [employer] [address] [place] [address] PCP - General Internal Medicine 01/21/24
--- OUTSIDE RECORDS SUMMARY | 2025-05-30 15:13 | XMS_ITS | Clinical Summary ---
Author Organization [facility] [address] [place] [address] Address [address] [place] [address] Phone Care Team Providers Care Group Home Supervisor Name Role Phone Pedro Milan MD Primary Care Provider Allergies Active Allergy Reactions Criticality Noted Date Comments Sulfamethoxazole-Trimethoprim Itching 2014 Medications ondansetron ODT (ZOFRAN-ODT) 4 mg disintegrating tablet Take 1 tablet (4 mg total) by mouth. 10/18/20 21 Active propranolol LA (INDERAL LA) 80 mg 24 hr capsule 02/01/20 22 Active SUMAtriptan (IMITREX) 100 mg tablet May repeat dose once after 2 hours, if needed. 12/09/19 15 Active levETIRAcetam (KEPPRA) 750 mg tablet Take 1 tablet (750 mg total) by mouth 2 (two) times a day. for 90 days 09/13/20 24 Active tiZANidine (ZANAFLEX) 4 mg tablet TAKE 1 TABLET BY MOUTH THREE TIMES A DAY NEEDED FOR SPASMS 09/24/20 24 Active sulindac (CLINORIL) 150 mg tablet Take 1 tablet (150 mg total) by mouth 2 (two) times a day. 11/26/19 25 Active albuterol HFA (ProAir HFA) 90 mcg/actuation inhalerIndication s:Mild intermittent asthma without complication Inhale 2 puffs by mouth every 4 (four) hours if needed for wheezing or shortness of breath. 8.5 g 01/25/20 25 Active zolpidem (AMBIEN) 5 mg tablet Take 1 tablet (5 mg total) by mouth at bedtime as needed for sleep. Max Daily Amount: 5 mg 30 tablet 01/25/20 Active tirzepatide, weight loss, (Zepbound) 2.5 mg/0.5 mL solution Inject 2.5 mg under the skin every 7 (seven) days. 2 mL 01/25/20 Active atorvastatin (LIPITOR) 20 mg tablet Take 1 tablet (20 mg total) by mouth 1 (one) time each day. 30 each 5 02/02/20 25 025 Active losartan (COZAAR) 100 mg tablet TAKE 1 TABLET BY MOUTH EVERY DAY 90 tablet 1 03/21/20 25 Active PARoxetine (PAXIL) 30 mg tablet TAKE 1 TABLET (30 MG TOTAL) BY MOUTH 1 (ONE) TIME EACH DAY IN THE MORNING. 90 tablet 05/03/20 25 025 Active PARoxetine (PAXIL) 30 mg tablet Take 1 tablet (30 mg total) by mouth 1 (one) time each day in the morning. 30 each 5 10/22/20 24 025 Discontinued Active Problems Problem Noted Date Diagnosed Date Current smoker 01/24/2025 Transient ischemic attack 01/24/2025 Other insomnia 05/24/2024 Acute embolism and thrombosi s of deep vein of right upper extremity (CMS/HCC V24, CMS/HCC V28) 05/29/2023 Epilepsy (CMS/HCC V24, CMS/HCC V28) 09/16/2022 PAC (premature atrial contraction) 05/14/2021 Diverticulosis 05/03/2021 DANIEL (obstructive sleep apnea) 03/19/2021 Overview (01/12/2024): Last Assessment & Plan: The patient has significant nighttime snoring. She has a stop bang score of 3, which is consistent with high risk of obstructive sleep apnea. She also has hypertension regarding multiple antihypertensive medications. Therefore, we need to rule out the possibility of underlying sleep apnea. We will order a sleep study. Palpitations 03/19/2021 Overview (01/12/2024): Last Assessment & Plan: Recent 48-hour Holter did not show any underlying arrhythmia as etiology of her palpitations. She tells me today her symptoms have actually improved. TSH was noted to be normal. We will continue to monitor. Obesity (BMI 30.0-34.9) 12/30/2019 Trigger finger, left index finger 09/15/2019 Gallbladder polyp 05/16/2017 Irritable bowel syndrome wit h both constipation and diarrhea 04/09/2017 Mammographic microcalcification 10/17/2016 Prolapse of female pelvic organs 05/12/2015 Overview (01/12/2024): Seeing Dr. Louis HTN (hypertension) 01/25/2015 Overview (01/12/2024): Last Assessment & Plan: 46-year-old female patient with history of hypertension. She is currently on propanolol 80 mg daily, losartan 100 mg daily, chlorthalidone 25 mg daily. She had work-up to evaluate for secondary causes of hypertension including labs and renal artery duplex. Her work-up is reassuring. Her renin is noted to be elevated; however, aldosterone is within normal limits. This certainly could be due to her losartan, chlorthalidone, or salt intake. She is noted to be normotensive today. She will continue to monitor her blood pressure and call if it is routinely elevated (parameters given). Anxiety 01/18/2015 Asthma 01/18/2015 Depression 01/18/2015 Migraine 12/09/2014 Overview (01/12/2024): Dr. Khoury Ocular migraine 12/09/2014 Abnormal cervical Papanicolaou smear 12/29/2012 Overview (01/24/2025): Error: cotesting 1 yr, Nov 2017, due to hx ASCUS in 2014 with neg colpo Pap neg/neg. Cotesting 5 yrs. Cervical intraepithelial neoplasia grade 1 06/11 Overview (01/24/2025): cx bx cin1; ecc neg. for pap/cotesting in 12 mo-05/2014. 12/29/12 pap lgsil-will repeat colpo 08/20/12cx bx 12:00 no dysplasia/neg P16; ecc neg. orig pap not represented in bx. Repeat pap 6 mo. Immunizations Name Administration Dates Next Due Influenza, Unspecified 08/02/2022,07/23/2016 Pfizer SARS-CoV-2 COVID-19, mRNA, LNP-S, preservative free 01/09/2021,12/19/2020 Pneumococcal polysaccharide 23 valent (Pneumovax 23) 2yo and older 05/12/2015,06/26/2008 Tdap Tetanus diptheria acell ular pertussis (Boostrix; Adacel) 7yo and older 05/12/2015 Surgical History Surgery Date Site/Laterality Comments SECTION PROCEDURE: HISTORICAL TUBAL LIGATION PROCEDURE: HISTORICAL TUBAL LIGATION OTHER SURGICAL HISTORY PROCEDURE: LAP, SURG, RADFREQ ABLATION OF UTERINE FIBROID(S), INC INTRAOP GUIDE; COMMENT: fibroid embolization OTHER SURGICAL HISTORY PROCEDURE: AK COLPOPEXY VAGINAL EXTRAPERITONEAL APPROACH OTHER SURGICAL HISTORY PROCEDURE: AK REPAIR RECTOCELE SEPARATE PROCEDURE COLONOSCOPY 02/07/20 PROCEDURE: HISTORICAL COLONOSCOPY; COMMENT: No gross masses or polyps, poor prep-diminutive polyps could not be ruled out. Some diverticulosis distal sigmoid colon and spasticity present. COLONOSCOPY 07/03/20 PROCEDURE: HISTORICAL COLONOSCOPY ESOPHAGOGASTRODUODENOSCOPY 07/03/20 PROCEDURE: AK ESOPHAGOGASTRODUODENOSCOPY TRANSORAL DIAGNOSTIC BREAST BIOPSY 2016 Left PROCEDURE: BX BREAST; PERC NEEDLE CORE W/IMAG GUID ROTATOR CUFF REPAIR 07/27/20 Right Right shoulder arthroscopic rotator cuff repair. Dr. Tavarez SECTION, LOW TRANSVERSE Medical History Medical History Date Comments Asthma 01/18/2015 DX:Asthma Depression 01/18/2015 DX:Depression Anxiety 01/18/2015 DX:Anxiety History of vitamin D deficiency 01/18/2015 DX:History of vitamin D deficiency Essential hypertension DX:Essent ial hypertension Gallbladder polyp 05/16/2017 DX:Gallbladder polyp History of Helicobacter pylo ri infection 05/27/2017 DX:History of Helicobacter p ylori infection; COMMENT: 05/16/2017 HTN (hypertension) 01/25/2015 DX:HTN (hyper tension) Irritable bowel syndrome wit h both constipation and diarrhea 04/09/2017 DX:Irritable bowel syndrome with both constipation and diarrhea Mammographic microcalcification 10/17/2016 DX:Mammographic microcalcification Migraine 12/09/2014 DX:Migraine; COM MENT: Dr. Khoury DANIEL (obstructive sleep apnea) 03/19/2021 DX :DANIEL (obstructive sleep apnea) Palpitations 03/19/2021 DX:Palpitations Prolapse of female pelvic organs 05/12/2015 DX:Prolapse of female pelvic organs; COMMENT: Seeing Dr. Louis Diverticulosis 05/03/2021 DX:Diverticulosi s Urinary incontinence Current smoker 01/24/2025 Transient ischemic attack 01/24/2025 Family History Medical History Relation Name Comments Breast cancer Aunt m Other: kidney disease Daughter IGA ne phropathy Other: hiv Father at age 47 of brain tumor Other: Other Maternal Grandfather no info rmation Cancer Maternal Grandmother Cristina myself Hypertension Maternal Grandmother Cristina myself Other: oral cancer Maternal Grandmother Cristina myself n onsmoker Other: murdered Mother age 34 Breast cancer Other 1 m cousin ?age Other: ovarian cancer Other 1 m cousin ?age mater nal gr aunt; mother of # 8 Breast cancer Other 2 maternal gr au nt Other: oral cancer Other 3 maternal gr uncle; smoker; dx > age 50 Other: breast and ovarian cancer Other 4 maternal 2nd cousin; age 50 2nd primary breast ca and ovarian ca Prostate cancer Paternal Grandfather Adelanoswald dial ysis also Diabetes Paternal Grandmother osteopo rosis; alive at 82,2015 Relation Name Status Comments Aunt m Daughter Father hiv Maternal Grandfather Maternal Grandmother Cristina myself Mother murdered Other 1 m cousin ?age Other 2 Other 3 Other 4 Paternal Grandfather Adelanio Paternal Grandmother Social History Tobacco Use Types Packs/Day Years Used Date Smoking Tobacco: Every Day Cigarettes 0.5 10 Last attempted to quit: 08/23/2019 Smokeless Tobacco: Current Tobacco Cessation:Ready to Q uit: Not Asked; Counseling Given: Not Answered Alcohol Use Standard Drinks/Week Comments Not Currently 0 (1 standard drink = 0.6 oz pur e alcohol) Housing Instability Answer Date Recorde d Are you worried that in the next 2 months you may not have stable housing? No 01/24/2025 Food Access & Nutrition Answer Date Rec orded Do you have access to a vari ety of food including fruits and vegetables? Yes 01/24/2025 Access to Healthcare Answer Date Record ed Within the last 3 months, ho w many times did you visit the emergency department for your medical care? 0 01/24/2025 Health Literacy Answer Date Recorded How often do you need to hav e someone help you when you read instructions, pamphlets, or other written material from your doctor or pharmacy? Never 01/24/2025 Caregiver: How often do you need to have someone help you when you read instructions, pamphlets, or other written material from your doctor or pharmacy? Not on file 01/24/2025 Financial Risk Answer Date Recorded How hard is it for you to pa y for the very basics like food, housing, medical care, and air conditioning / heating? Not very hard 01/24/2025 Transportation Answer Date Recorded Has the lack of transportati on kept you from meetings, work, or from getting things needed for daily living? No Has the lack of transportati on kept you from medical appointments or from getting medications? No 01/24/2025 Social Isolation Answer Date Recorded How often do you feel lonely or isolated from th ose around you? Never 01/24/2025 Food Risk Answer Date Recorded Within the past 12 months we worried whether our food would run out before we got money to buy more. Never true 01/24/2025 Within the past 12 months th e food we bought just didn't last and we didn't have money to get more. Never true 01/24/2025 Dependent Care Answer Date Recorded Do you need help finding or paying for care for your loved ones. For example, childcare teacher or elderly care for an older adult? No 01/24/2025 Education Answer Date Recorded Do you think completing more education or training, like finishing a GED, going to college, or learning a trade, would be helpful for you? No 01/24/2025 Employment and Income Answer Date Recor ded During the last four weeks, have you been actively looking for work? No 01/24/2025 Living Situation Answer Date Recorded What is your living situation? 0 01/24/2025 Comments No Sex and Gender Information Value Date Recorded Sex Assigned at Not on file Legal Sex Female 2:07 AM EST Gender Identity Not on file Sexual Orientation Not on file Obstetrics History Para Term AB IAB SAB Ectopic Multiple Livin g Live Births 3 3 3 3 Date Outcome GA Total Labor Labor/2nd/3rd Weight Sex Type Anes PTL Jaida A1 A5 Name Clin Term Term Term Last Filed Vital Signs Vital Sign Reading Time Taken Comments Blood Pressure 134/70 01/24/2025 2:48 PM EDT Pulse 76 01/24/2025 2:48 PM EDT Temperature 36.6 C (97.9 F) 01/24/2025 2:48 PM EDT Respiratory Rate 16 01/24/2025 2:48 PM EDT Oxygen Saturation 99% 09/23/2024 1:14 PM EST Inhaled Oxygen Concentration - - Weight 95.4 kg (210 lb 6.4 oz) 01/24/2025 2:48 P M EDT Height 162.6 cm (5' 4 ) 01/24/2025 2:48 PM EDT Body Mass Index 36.12 01/24/2025 2:48 PM EDT Plan of Treatment Health Maintenance Due Date Last Done Comments Hepatitis B Vaccines (1 of 3 - 19+ 3-dose series) 1995 Cervical Cancer Screening: Pap Smear 1997 Pneumococcal Vaccine: Pediatrics (0 to 5 Years) and At-Risk Patients (6 to 49 Years) (3 of 3 - PCV) 05/12/2016 05/12/2015, 06/26/2008 COVID-19 Vaccine (3 - Pfizer risk series) 02/06/2021 01/09/2021, 12/19/2020 HIV Screening 10/11/2022 Hepatitis C Screening 10/11/2022 DTaP,Tdap,and Td Vaccines (2 - Td or Tdap) 05/12/2025 05/12/2015 Influenza Vaccine (#1) 2025 08/02/2022, 2015 Social Influencers of Health Screening 01/24/2026 01/24/2025 Hypertension/CHF/CAD Annual BMP Blood Test 01/27/2026 01/27/2025, 05/24/2024 Breast Cancer Screening 11/02/2026 11/02/20 24, 10/20/2024, 10/14/2023, Additional history exists Cholesterol Screening (Lipid Panel) 01/27/2030 01/27/2025, 05/24/2024, 05/04/2020 Colorectal Cancer Screening: Colonoscopy 07/03/2031 07/03/2021 Depression Screening Completed 01/24/2025 HIB Vaccines Aged Out No longer eligi ble based on patient's age to complete this topic HPV Vaccines Aged Out No longer eligi ble based on patient's age to complete this topic Hepatitis A Vaccines Aged Out No long er eligible based on patient's age to complete this topic IPV Vaccines Aged Out No longer eligi ble based on patient's age to complete this topic MMR Vaccines Aged Out No longer eligi ble based on patient's age to complete this topic Meningococcal ACWY Vaccine Aged Out N o longer eligible based on patient's age to complete this topic Meningococcal B Vaccine Aged Out No l onger eligible based on patient's age to complete this topic RSV Immunization Patients Under 20 months Aged Out No longer eligible based on patient's age to complete this topic Varicella Vaccines Aged Out No longer eligible based on patient's age to complete this topic Procedures Procedure Name Priority Date/Time Associated Diagnosis Comments COMPREHENSIVE METABOLIC PANEL Routine 01/27/2025 10:44 AM EDT Primary hypertension LIPID PANEL WITH REFLEX TO DIRECT LDL Routine 01/27/2025 10:44 AM EDT Mixed hyperlipidemia MG MAMMO DIGITAL DIAGNOSTIC W LEA LEFT Routine 11/02/2024 10:02 AM EST Abnormal mammogram from Last 3 Months or Most Recently Relevant to Health Maintenance Results * (ABNORMAL) Lipid panel with reflex to direct LDL (01/27/2025 10:44 AM EDT) Cholesterol 259(H) 0 - 200 mg/dL LAB CHEMISTRY METHOD 01/27/2025 3:43 PM EDT [facility] Triglycerides 158(H) 0 - 150 mg/dL LAB CHEMISTRY METHOD 01/27/2025 3:43 PM EDT [facility] HDL 66 >=40 mg/dL LAB CHEMISTRY METHOD 01/27/2025 3:43 PM EDT [facility] LDL Calculated 161(H) 0 - 100 mg/dL LAB CHEMISTRY METHOD 01/27/2025 3:43 PM EDT [facility] VLDL Cholesterol Imer 31.6 mg/dL LAB CHEMISTRY METHOD 01/27/2025 3:43 PM EDT [facility] Non HDL Chol. (LDL+VLDL) 193(H) <145 mg/dL LAB CHEMISTRY METHOD 01/27/2025 3:43 PM EDT [facility] Chol/HDL Ratio 3.9 0.0 - 4.4 LAB CHEMISTRY METHOD 01/27/2025 3:43 PM EDT [facility] Blood Venous blood specimen / Unknown Venipuncture / Unknown 01/27/2025 10:44 AM EDT 01/27/2025 10:44 AM EDT us Shira Mike PA LAB BLOOD ORDERABLES Final Resul t [facility] [address] [place] [address], * (ABNORMAL) Comprehensive metabolic panel (01/27/2025 10:44 AM EDT) Sodium 140 133 - 145 mmol/L LAB CHEMISTRY METHOD 01/27/2025 3:43 PM [facility] Potassium 4.4 3.5 - 5.5 mmol/L LAB CHEMISTRY METHOD 01/27/2025 3:43 PM [facility] Chloride 107 96 - 110 mmol/L LAB CHEMISTRY METHOD 01/27/2025 3:43 PM [facility] CO2 26 21 - 32 mmol/L LAB CHEMISTRY METHOD 01/27/2025 3:43 PM [facility] Anion Gap 7 3 - 11 LAB CHEMISTRY METHOD 01/27/2025 3:43 PM [facility] Glucose 110(H) 70 - 100 mg/dL LAB CHEMISTRY METHOD 01/27/2025 3:43 PM T [facility] BUN 15 5 - 25 mg/dL LAB CHEMISTRY METHOD 01/27/2025 3:43 PM [facility] Creatinine 0.70 0.50 - 1.10 mg/dL LAB CHEMISTRY METHOD 01/27/2025 3:43 PM [facility] eGFR 107 >=60 mL/min/1. 73m2 LAB CHEMISTRY METHOD 01/27/2025 3:43 PM [facility] Comment:Calculation based on the Chronic Kidney Disease Epidemiology Collaboration (CKD-EPI) equation refit without adjustment for race. BUN/Creatinine Ratio 21.4 LAB CHEMISTRY METHOD 01/27/2025 3:43 PM [facility] Calcium 9.6 8.5 - 10.5 mg/dL LAB CHEMISTRY METHOD 01/27/2025 3:43 PM [facility] AST (SGOT) 17 10 - 42 unit/L LAB CHEMISTRY METHOD 01/27/2025 3:43 PM [facility] ALT (SGPT) 36 10 - 60 unit/L LAB CHEMISTRY METHOD 01/27/2025 3:43 PM [facility] Alkaline Phosphatase 131(H) 42 - 121 unit/L LAB CHEMISTRY METHOD 01/27/2025 3:43 PM [facility] Total Protein 7.4 6.0 - 8.0 g/dL LAB CHEMISTRY METHOD 01/27/2025 3:43 PM [facility] Albumin 4.2 3.2 - 5.0 g/dL LAB CHEMISTRY METHOD 01/27/2025 3:43 PM [facility] Total Bilirubin 0.5 0.0 - 1.4 mg/dL LAB CHEMISTRY METHOD 01/27/2025 3:43 PM [facility] Blood Venous blood specimen / Unknown Venipuncture / Unknown 01/27/2025 10:44 AM EDT 01/27/2025 10:44 AM EDT us Shira Mike HOOPER LAB BLOOD ORDERABLES Final Resul t [facility] [address] [place] [address], [place] [phone] * (ABNORMAL) MG Mammo Digital Diagnostic w Lea Left (11/02/2024 10:02 AM EST) Anatomical Region Laterality Modality Breast Left Mammography 11/02/2024 11:3 9 AM EST Impressions 11/02/2024 11:52 AM EST Recommend ultrasound-guided core biopsy of 2 subcentimeter hypoechoic lesions at the 2 o'clock position of the left breast. Biopsy appointment has been scheduled. BREAST DENSITY: C - The breasts are heterogeneously dense which may obscure small masses. BI-RADS CATEGORY: 4 - SUSPICIOUS RECOMMENDATION: Core biopsy of left breast recommended. MAMMO LOCATION: [facility], [address] [place] [address], [id number], . -------- FINAL REPORT -------- Dictated By: Shilpa Jimenez Dictated Date: 11/02/2024 11:39 ET Assigned Physician: Shilpa Jimenez Reviewed and Electronically Signed By: Shilpa Jimenez Signed Date: 11/02/2024 11:52 ET Workstation ID: [id number] Transcribed By: Self Edit Transcribed Date: 11/02/2024 11:39 ET Narrative 11/02/2024 11:52 AM EST EXAM: MG MAMMO DIGITAL DIAGNOSTIC W LEA LEFT, US BREAST LIMITED LEFT HISTORY: Call back from a screening mammogram. FINDINGS: 90 ML and spot compression MLO and CC views performed with tomosynthesis. Persistent adjacent focal asymmetries in the posterior upper outer breast. Targeted sonography was subsequently performed showing corresponding adjacent lesions at the 2 o'clock position, 6 cm from the nipple: -1.3 x 1.1 x 0.8 cm cyst with minimal internal echoes compatible with a complicated cyst. -0.8 x 0.7 x 0.6 cm hypoechoic lesion with slightly ill-defined margins. No blood flow on color Doppler. This could represent a complex cyst versus a solid lesion. Ultrasound-guided core biopsy is recommended to exclude malignancy. -0.7 x 0.7 x 0.4 cm hypoechoic lesion without blood flow on color Doppler. This could represent a complex cyst versus a solid lesion. Ultrasound-guided core biopsy is recommended to exclude malignancy. -Few additional subcentimeter cysts seen regionally. Procedure Note Shilpa Jimenez MD - 11/02/2024 EXAM: MG MAMMO DIGITAL DIAGNOSTIC W LEA LEFT, US BREAST LIMITED LEFT HISTORY: Call back from a screening mammogram. FINDINGS: 90 ML and spot compression MLO and CC views performed with tomosynthesis.Persistent adjacent focal asymmetries in the posterior upper outerbreast. Targeted sonography was subsequently performed showing correspondingadjacent lesions at the 2 o'clock position, 6 cm from the nipple: -1.3 x 1.1 x 0.8 cm cyst with minimal internal echoes compatible with acomplicated cyst. -0.8 x 0.7 x 0.6 cm hypoechoic lesion with slightly ill-defined margins.No blood flow on color Doppler. This could represent a complex cystversus a solid lesion. Ultrasound-guided core biopsy is recommended toexclude malignancy. -0.7 x 0.7 x 0.4 cm hypoechoic lesion without blood flow on color Doppler.This could represent a complex cyst versus a solid lesion.Ultrasound-guided core biopsy is recommended to exclude malignancy. -Few additional subcentimeter cysts seen regionally. IMPRESSION: Recommend ultrasound-guided core biopsy of 2 subcentimeter hypoechoiclesions at the 2 o'clock position of the left breast. Biopsy appointmenthas been scheduled. BREAST DENSITY: C - The breasts are heterogeneously dense which mayobscure small masses. BI-RADS CATEGORY: 4 - SUSPICIOUS RECOMMENDATION: Core biopsy of left breast recommended. MAMMO LOCATION: [facility], [address] [place] [address], [id number], . -------- FINAL REPORT -------- Dictated By: Shilpa Jimenez Dictated Date: 11/02/2024 11:39 ET Assigned Physician: Shilpa Jimenez Reviewed and Electronically Signed By: Shilpa Jimenez Signed Date: 11/02/2024 11:52 ET Workstation ID: [id number] Transcribed By: Self Edit Transcribed Date: 11/02/2024 11:39 ET Pedro Milan MD IMG BI PROCEDURES Sara l Result from Last 3 Months or Most Recently Relevant to Health Maintenance Insurance [facility] Care Teams Group Home Supervisor Relationship Specialty Start Date End Date Pedro Milan MD [address] [place] [address] PCP - General 09/16/22
--- OUTSIDE RECORDS SUMMARY | 2025-05-30 15:13 | XMS_ITS ---
Author Name [facility] Organization Unknown History of Medication Use Medication Directions Dispensed Refills Start Date End Date Stat us PARoxetine (PAXIL) 30 mg tablet Take 1 tablet (30 mg total) by mouth 1 (one) time each day in the morning. 10/22/2024 active albuterol HFA (ProAir HFA) 90 mcg/actuation inhaler Inhale 2 puffs by mouth every 4 (four) hours if needed for wheezing or shortness of breath. 09/23/2024 active losartan (COZAAR) 100 mg tablet TAKE 1 TABLET BY MOUTH EVERY DAY 09/15/2024 active levETIRAcetam (KEPPRA) 750 mg tablet Take 1 tablet (750 mg total) by mouth 2 (two) times a day. for 90 days 09/13/2024 active zolpidem (AMBIEN) 5 mg tablet Take 1 tablet (5 mg total) by mouth at bedtime as needed. 12/19/2022 active gabapentin (NEURONTIN) 300 mg capsule Take 1 capsule (300 mg total) by mouth 2 (two) times a day. active Allergies Allergen Reaction Severity Comment Documented Date Source Statu s SULFAMETHOXAZOLE-TRIMETHO PRIM ITCHING 12/09/2014 [facility] active Problems Problem Status Onset Date Problem Type Date of Resolution Source HTN (hypertension) active 2015-01-25 ProblemAct [facility] PAC (premature atrial contraction) active 2021-05-14 [facility]Act [facility] Current smoker active 2025-01-24 ProblemAct [facility] Depression active 2015-01-18 ProblemAct [facility] Irritable bowel syndrome with both constipation and diarrhea active 2017-04-09 ProblemAct [facility] Other insomnia active 2024-05-24 ProblemAct [facility] Ocular migraine active 2014-12-09 [facility] [facility] Anxiety active 2015-01-18 ProblemAct [facility] Gallbladder polyp active 2017-05-16 ProblemAct [facility] DANIEL (obstructive sleep apnea) active 2021-03-19 ProblemAct [facility] Mammographic microcalcification active 2016-10-17 ProblemAct [facility] Migraine active 2014-12-09 ProblemAct [facility] Cervical intraepithelial neoplasia grade 1 active 2012-06-11 ProblemAct [facility] Acute embolism and thrombosis of deep vein of right upper extremity active 2023-05-29 ProblemAct [facility] Transient ischemic attack active 2025-01-24 ProblemAct [facility] Trigger finger, left index finger active 2019-09-15 ProblemAct [facility] Epilepsy active 2022-09-16 ProblemAct [facility] Diverticulosis active 2021-05-03 ProblemAct [facility] Abnormal cervical Papanicolaou smear active 2012-12-29 ProblemAct [facility] Palpitations active 2021-03-19 ProblemAct [facility] Prolapse of female pelvic organs active 2015-05-12 ProblemAct [facility] Asthma active 2015-01-18 ProblemAct [facility] Obesity (BMI 30.0-34.9) active 2019-12-30 ProblemAct [facility] Immunizations Vaccine Date Source Lot Number Status Influenza, Unspecified 08/02/2022 [facility] co mpleted Pfizer SARS-CoV-2 COVID-19, mRNA, LNP-S, preservative free 01/09/2021 [facility] [id number] completed Pfizer SARS-CoV-2 COVID-19, mRNA, LNP-S, preservative free 12/19/2020 [facility] [id number] completed Influenza, Unspecified 07/23/2016 [facility] co mpleted Pneumococcal polysaccharide 23 valent (Pneumovax 23) 2yo and older 05/12/2015 [facility] [id number] com pleted Tdap Tetanus diptheria acell ular pertussis (Boostrix; Adacel) 7yo and older 05/12/2015 [facility] [id number] completed Pneumococcal polysaccharide 23 valent (Pneumovax 23) 2yo and older 06/26/2008 [facility] UNK com pleted Care Team Organization Name Specialty Phone Email Start Date End Da te [facility] EDILBERTO WARREN Primary Care 10/15/2023 06/21/2024 [facility] Aroldo Youngblood Primary Care 01/08/202306/03 [facility] Termed, PROVIDER Primary Care 09/10/202206/03
--- OUTSIDE RECORDS SUMMARY | 2025-05-30 15:13 | XMS_ITS | Data Portability ---
Author Organization [facility], [facility] Alfred Address [address] [place] [address] Care Team Providers Care Detective Precinct Name Role Phone KELVIN EDILBERTO Primary Care Provider [phone] PRADEEP LARRY Pool Manager [phone] Assessment Encounter Date Assessment Date Assessment LastModified by Organization Details LastModified Time 03/04/2025 03/04/2025 Assessment: Continued tightness in paraspinals. Weakness with core activation. Plan: Continued PT is recommended at 2x/week for the next 4 weeks to decrease pain, increase core/back strength, and optimize lumbar mechanics for functional ADL's. [email or web address] Not available 03/05/2025 21:41:19 03/08/2025 03/08/2025 Assessment: Mod tightness in thoracic/lumbar paraspinals. Poor standing posture with weakness in deep core musculature. Plan: Continued PT is recommended at 2x/week for the next 4 weeks to decrease pain, increase core/back strength, and optimize lumbar mechanics for functional ADL's. [email or web address] Not available 03/08/2025 14:52:43 03/25/2025 03/25/2025 Dx:Right rotator cuff repair 07/27/2024 Interval History:Still having considerable pain, not able to use the arm away from the body, has completed therapy. SocHx: nonsmoker, nondrinker Past Medical/Surgical History/Meds/Allerg ies reviewed and charted ROS: negative Physical Exam: afebrile, vital signs stable, in no apparent distress, oriented to person/place/time. Gait symmetric. Skin intact without erythema. Heart RRR Lungs: clear Abdomen soft, nontender. RightSHOULDER: no redness, warmth, deformity. Range of motion full in all planes with no stiffness. Strength 5/5 all muscle groups. Apprehension negative. Impingement sign Positive. Acromioclavicular joint nontender without irritability with cross body adduction. Neurovascular Exam wnl. Contralateral SHOULDER: no redness, warmth, deformity. Range of motion full in all planes with no stiffnes. Strength 5/5 all muscle groups. Apprehension negative. Impingement sign negative. Acromioclavicular joint nontender without irritability to cross body adduction. Neurovascular Exam wnl. New Studies: none Impression:Ongoing right shoulder pain status post rotator cuff repair Plan: 1.MRI scan ordered to assess rotator cuff healing, follow-up after scan to discuss findings and options. Remains disabled from usual occupation. [employer] [facility] Trumpet Search speech recognition interventional tech software was used to create portions of this document. An attempt at proofreading has been made to minimize errors. Please call for corrections. [email or web address] Not available 03/25/2025 13:22:25 Plan of Treatment Reminders Order Date Submit Date Provider Last Modified By Organization Details Last Modified Time Details Appointments RECHECK 15 2024 09:45A M Miriam Pierson CNP Not available Not available Not available NEW PATIENT 15 2024 09:30A M Brandon Tavarez MD Not available Not available Not available Lab None recorded. Referral None recorded. Procedures None recorded. Surgeries None recorded. Imaging None recorded. Medication Orders meloxicam 15 mg tablet 2024 025 [email or web address] [id number], [address] [place], [address], 05/05/2025 09:42:25 Patient TargetsNo targets recorded. Patient InstructionsNo instructions recorded. Reason for Referral None Reported. Results Created Date Observation Date Name Description Value Unit Range Abnormal Flag Note LastModifiedBy Organization Detail LastModifiedTime 04/04/2004/01/2025 MAC, alvaro pruitt, w/o contr ast [facility] Access ion Number : [id number] David t Name: Mitesh Glez Medica l Record Number : [id number] Date of : 1974 Date of Exam: 2024 Referr ing Physic chiquita: Caterina ti, Brandon ANA [address] [facility] [place] [address] Exam: MR Should er (C-) CPT 58115 - Right Room Descri ption: [place] [facility] Pion 3T MR Should er (C-) CPT 25892 CLINIC AL INDICA TION: Reason For Exam: M75.10 1 - Unspec ified rotato r cuff tear or ruptur e of right should er, not specif ied as trauma tic, M12.81 1 - Other specif ic arthro pathie s, not elsewh ere classi fied, right should er, , right should er refrac tory pain after should er surger y ?recur rent rotato r cuff tear Reason For Exam: M75.10 1 - Unspec ified rotato r cuff tear or ruptur e of right should er, not specif ied as trauma tic, M12.81 1 - Other specif ic arthro pathie s, not elsewh ere classi fied, right should er, , right should er refrac tory pain after should er surger y ?recur rent rotato r cuff tear afrago so - Standa rd Depart ment Protoc ol TECHNI QUE: MRI of the right should er was perfor med withou t intrav enous contra st. COMPAR HIRAL: 023 FINDIN GS: AC joint: Patien t is status post acromi oplast y and partia l resect ion of the distal clavic le. Rotato r cuff: Multip le bone suture anchor s within the mehnaz l head extend ing to the supras pinatu s and infras pinatu s footpr ints in keepin g with normal rotato r cuff repair . Rotato r cuff tendon s are intact . Normal rotato r cuff muscle bulk. Glenoi d labrum and biceps tendon : On nonart hrogra phic evalua tion there is no eviden ce of displa raul labral tear or para labral cyst. Biceps tendon is intact and the extra- articu lar segmen t is visual ized within the bicipi comfort groove . Articu lar cartil age: The articu lar cartil age is of normal thickn ess. No focal defect s are seen. Bone: No eviden ce of fractu re, malali gnment or bone marrow contus ion. IMPRES NATHANAEL: Signs of interv al subacr omial decomp ressio n and rotato r cuff repair . No eviden ce of re-tea r. Electr onical ly Signed By: Segundo Merino rd, MD, [facility] ([facility]) [address], [place], [address], 04/05/2025 16:22:40 05/11/20 25 05/10/2025 MRI, lumba r spine , w/wo contr ast [facility] Access ion Number : [id number] Patien t Name: Mitesh Glez y Medica gareth Record Number : [id number] Date of : 1974 Date of Exam: 2024 Referr ing Physic chiquita: Adiel Goodman [facility] [address] [facility] [address] Exam: MR Lumbar Spine (C-/C+ ) CPT 92172 Room Descri ption: [facility] 1.5 MR Lumbar Spine (C-/C+ ) CPT 03103 INDICA TION: Reason For Exam: M54.16 - Radicu lopath y, lumbar region , , lumbar spine mri W/ contra st\E E\[facility] (MRI, LUMBAR SPINE, W/ CONTRA ST) HX of lumbar sx Reason For Exam: M54.16 - Radicu lopath y, lumbar region , , lumbar spine mri W/ contra st\E E\[facility] (MRI, LUMBAR SPINE, W/ CONTRA ST) HX of lumbar sx TECHNI QUE: MRI of the lumbar spine was perfor med with and withou t intrav enous contra st utiliz ing sagitt al T1, sagitt al T2, sagitt al STIR, axial T1, and axial T2-jeni ghted sequen bradly, and post-c ontras t sagitt al T1 and axial T1-jeni ghted sequen bradly. 5 mL Elucir em intrav enous contra st was admini stered . COMPAR HIRAL: Lumbar spine MRI 05/08/20 24. FINDIN GS: NUMBER ING: The study assume s 5 non-ri b-bear ing lumbar type verteb ral bodies . ALIGNM ENT, VERTEB ASHLEE, MARROW , AND DISCS: Alignm ent is normal . Verteb ral body height s are preser [place]. Minima l Modic type I signal change s at L2-L3. Otherw ise, there is no signif icant marrow signal abnorm ality. There is disc desicc ation and loss mild of interv ertebr al disc height at L2-L3. Otherw ise, the interv ertebr al discs are mainta ined. CONUS: The conus is normal in signal and contou r, with normal level of termin ation at L1-L2. No change in smooth enhanc ement along either a vascul ar struct ure or one of the right S1 nerve roots. PARASP INAL TISSUE S: No acute abnorm ality in the parave rtebra l soft tissue s. There are postsu rgical change s in the soft tissue s servicing rep ior to the L2-L3 level on the right. DETAIL ED FINDIN GS BY LEVEL: L1-L2: No signif icant canal stenos is or neural forami nal narrow ing. L2-L3: Postsu rgical change s with a right hemila minect petr/fa cetect petr. Enhanc ing tissue at the surgic al bed compat ible with postsu rgical reacti on, slight ly extend ing into the dorsal epidur al space. Minima l diffus e disc bulge with a small right forami nal protru nathanael compon ent mildly narrow ing the right neural forame n, smalle r than on the previo us exam. No signif icant canal stenos is or left neural forami nal narrow ing. L3-L4: No signif icant canal stenos is or neural forami nal narrow ing. L4-L5: Facet spurri ng. No signif icant canal stenos is or neural forami nal narrow ing. L5-S1: Facet spurri ng. No signif icant canal stenos is or neural forami nal narrow ing. IMPRES NATHANAEL: Postsu rgical and mild degene rative change s of the lumbar spine as above. Right forami nal disc protru nathanael at L2-L3 is smalle r than previo usly. Otherw ise, the findin gs are simila r to prior. There contin ues to be nonspe cific smooth enhanc ement either along one of the right S1 nerve roots or an adjace nt vascul ar struct ure, casandraan ged from prior. Electr onical ly Signed By: Vivian negron MD [email or web address] [facility] ([facility]) [address], [place], [address], 05/11/2025 13:55:04 05/11/20 25 05/10/2025 MRI, lumba r spine , w/o contr ast No observ ation record ed. [facility]ED [facility] [address], [place], [address], 05/11/2025 13:54:19 Result Notes Documentation Provider Name and Address Organization Details Recorded Time Mri, Shoulder, W/o Contrast : [facility] Accession Number: [id number] Patient Name: Amrita Glez Date of : 1975 Date of Exam: 04-01-2025 Referring Physician: Brandon Tavarez [address] [place] [address] Exam: MR Shoulder (C-) CPT 50830 - [facility] CPT 78237 CLINICAL INDICATION: Reason For Exam: M75.101 - Unspecified rotator cuff tear or rupture of right shoulder, not specified as traumatic, M12.811 - Other specific arthropathies, not elsewhere classified, right shoulder, , right shoulder refractory pain after shoulder surgery ?recurrent rotator cuff tear Reason For Exam: M75.101 - Unspecified rotator cuff tear or rupture of right shoulder, not specified as traumatic, M12.811 - Other specific arthropathies, not elsewhere classified, right shoulder, , right shoulder refractory pain after shoulder surgery ?recurrent rotator cuff tear afragoso - Standard Department Protocol TECHNIQUE: MRI of the right shoulder was performed without intravenous contrast. COMPARISON: 04/12/2023 FINDINGS: AC joint: Patient is status post acromioplasty and partial resection of the distal clavicle. Rotator cuff: Multiple bone suture anchors within the humeral head extending to the supraspinatus and infraspinatus footprints in keeping with normal rotator cuff repair. Rotator cuff tendons are intact. Normal rotator cuff muscle bulk. Glenoid labrum and biceps tendon: On nonarthrographic evaluation there is no evidence of displaced labral tear or para labral cyst. Biceps tendon is intact and the extra-articular segment is visualized within the bicipital groove. Articular cartilage: The articular cartilage is of normal thickness. No focal defects are seen. Bone: No evidence of fracture, malalignment or bone marrow contusion. IMPRESSION: Signs of interval subacromial decompression and rotator cuff repair. No evidence of re-tear. Electronically Signed By: Segundo [facility] 04/05/2025 16:22:40 Mri, Lumbar Spine, W/wo Contrast : [facility] Accession Number: [id number] Patient Name: Amrita Glez Date of : 1975 Date of Exam: 05-10-2025 Referring Physician: Adiel Costa [facility] [address] [place], [place] [address] Exam: MR Lumbar Spine (C-/C+) CPT 22322 Room Description: [facility] 1.5 MR Lumbar Spine (C-/C+) CPT 29834 INDICATION: Reason For Exam: M54.16 - Radiculopathy, lumbar region, , lumbar spine mri W/ contrast\E E\[facility] (MRI, LUMBAR SPINE, W/ CONTRAST) HX of lumbar sx Reason For Exam: M54.16 - Radiculopathy, lumbar region, , lumbar spine mri W/ contrast\E E\[facility] (MRI, LUMBAR SPINE, W/ CONTRAST) HX of lumbar sx TECHNIQUE: MRI of the lumbar spine was performed with and without intravenous contrast utilizing sagittal T1, sagittal T2, sagittal STIR, axial T1, and axial T2-weighted sequences, and post-contrast sagittal T1 and axial T1-weighted sequences. 5 mL Elucirem intravenous contrast was administered. COMPARISON: Lumbar spine MRI 05/08/2024. FINDINGS: NUMBERING: The study assumes 5 pse-ueb-ujrnerw lumbar type vertebral bodies. ALIGNMENT, VERTEBRAE, MARROW, AND DISCS: Alignment is normal. Vertebral body heights are preserved. Minimal Modic type I signal changes at L2-L3. Otherwise, there is no significant marrow signal abnormality. There is disc desiccation and loss mild of intervertebral disc height at L2-L3. Otherwise, the intervertebral discs are maintained. CONUS: The conus is normal in signal and contour, with normal level of termination at L1-L2. No change in smooth enhancement along either a vascular structure or one of the right S1 nerve roots. PARASPINAL TISSUES: No acute abnormality in the paravertebral soft tissues. There are postsurgical changes in the soft tissues posterior to the L2-L3 level on the right. DETAILED FINDINGS BY LEVEL: L1-L2: No significant canal stenosis or neural foraminal narrowing. L2-L3: Postsurgical changes with a right hemilaminectomy/facetectomy . Enhancing tissue at the surgical bed compatible with postsurgical reaction, slightly extending into the dorsal epidural space. Minimal diffuse disc bulge with a small right foraminal protrusion component mildly narrowing the right neural foramen, smaller than on the previous exam. No significant canal stenosis or left neural foraminal narrowing. L3-L4: No significant canal stenosis or neural foraminal narrowing. L4-L5: Facet spurring. No significant canal stenosis or neural foraminal narrowing. L5-S1: Facet spurring. No significant canal stenosis or neural foraminal narrowing. IMPRESSION: Postsurgical and mild degenerative changes of the lumbar spine as above. Right foraminal disc protrusion at L2-L3 is smaller than previously. Otherwise, the findings are similar to prior. There continues to be nonspecific smooth enhancement either along one of the right S1 nerve roots or an adjacent vascular structure, unchanged from prior. Electronically Signed By: Vivian vail [place] - [facility] 05/11/2025 13:55:04 Problems Name Problem SNOMED Code Status Onset Date Resolution Date Notes Provider Name and Address Organization Details Recorded Time No complaints 285055438 Active Status : 'A'; Not Available [facility] 4 09:16:27 Low back pain 378686916 Active 2023 ISAÍAS vail [place] - [facility] 4 15:44:34 Lumbar radiculopathy 021542241 Active 2023 EDUARDO vail [place] - [facility] 5 11:30:18 Problem Notes None recorded. Procedures Surgical History Date Name Laterality Status Provider Name and Address Organization Details Recorded Time 5 16679 Therapeutic Exercise (1:1) cancelled Gail Kaiesr DPT [address], [place], [address], [facility] 03/23/2025 08:38:01 5 92503: Manual therapy cancelled Gail Kaiser DPT [address], [place], [address], [facility] 03/23/2025 08:38:01 5 19220 Therapeutic Exercise (1:1) cancelled Tianna Reina PTA [address], [place], [address], [facility] 03/14/2025 10:11:02 5 07504: Manual therapy cancelled Tianna Reina PTA [address], [place], [address], [facility] 03/14/2025 10:11:02 5 11773 Therapeutic Exercise (1:1) completed Tianna Reina PTA [address], [place], [address], [facility] 03/07/2025 07:29:11 5 91530: Manual therapy completed Tianna Reina PTA [address], [place], [address], [facility] 03/07/2025 07:29:11 5 25220 Therapeutic Exercise (1:1) completed Gail Kaiser, DPT [address], [place], [address], [facility] 03/04/2025 09:47:37 5 49747: Manual therapy completed Gail Kaiser, DPT [address], [place], [address], [facility] 03/04/2025 09:47:37 5 94122 Therapeutic Exercise (1:1) completed Tianna Reina PTA [address], [place], [address], [facility] 02/01/2025 11:00:46 5 20857: Manual therapy completed Tianna Reina PTA [address], [place], [address], [facility] 02/01/2025 11:02:13 5 Sports Shoulder completed Tianna Katz PA-C [address], [place], [address], [facility] 01/28/2025 14:08:15 5 49612 Therapeutic Exercise (1:1) completed Gail Kaiser DPT [address], [place], [address], [facility] 01/21/2025 16:56:35 5 96272: Low complexity PT Eval completed Gail Kaiser DPT [address], [place], [address], [facility] 01/21/2025 16:56:37 5 78066 Therapeutic Exercise (1:1) completed Tianna Reina PTA [address], [place], [address], [facility] 01/04/2025 18:32:08 5 49541: Hot or Cold Pack completed Tianna Reina PTA [address], [place], [address], [facility] 01/04/2025 18:32:08 5 54362: Manual therapy completed Tianna Reina PTA [address], [place], [address], [facility] 01/05/2025 13:55:54 5 92401 Therapeutic Exercise (1:1) completed Tianna Reina PTA [address], [place], [address], [facility] 12/29/2024 07:30:04 5 18490: Hot or Cold Pack completed Tianna Reina PTA [address], [place], [address], [facility] 12/29/2024 07:30:03 5 46344: Manual therapy completed Tianna Reina PTA [address], [place], [address], [facility] 12/29/2024 07:30:04 5 59814 Therapeutic Exercise (1:1) completed Tianna Reina PTA [address], [place], [address], [facility] 12/27/2024 15:17:59 5 62730: Hot or Cold Pack completed Tianna Reina PTA [address], [place], [address], [facility] 12/27/2024 15:17:59 5 91181: Manual therapy completed Tianna Reina PTA [address], [place], [address], [facility] 12/27/2024 15:17:59 5 34435 Therapeutic Exercise (1:1) completed Tianna Riena PTA [address], [place], [address], [facility] 12/21/2024 14:03:53 5 86032: Hot or Cold Pack completed Tianna Reina PTA [address], [place], [address], [facility] 12/21/2024 14:03:53 5 69961: Manual therapy completed Tianna Reina PTA [address], [place], [address], [facility] 12/21/2024 14:03:53 5 38446 Therapeutic Exercise (1:1) cancelled Tianna Reina, BELT MEASURER [address], [place], [address], [facility] 12/20/2024 09:00:04 5 22898: Hot or Cold Pack cancelled Tianna Naiduer, BELT MEASURER [address], [place], [address], [facility] 12/20/2024 09:00:04 5 23216: Manual therapy cancelled Tianna Reina, BELT MEASURER [address], [place], [address], [facility] 12/20/2024 09:00:04 5 75213 Therapeutic Exercise (1:1) cancelled Tianna Reina, BELT MEASURER [address], [place], [address], [facility] 12/14/2024 18:27:36 5 18967: Hot or Cold Pack cancelled Tianna Reina, BELT MEASURER [address], [place], [address], [facility] 12/14/2024 18:27:36 5 07175: Manual therapy cancelled Tianna Reina, BELT MEASURER [address], [place], [address], [facility] 12/14/2024 18:27:36 5 95354 Therapeutic Exercise (1:1) completed Tianna Naiduer, BELT MEASURER [address], [place], [address], [facility] 12/10/2024 07:18:26 5 34221: Hot or Cold Pack completed Tianna Naiduer, BELT MEASURER [address], [place], [address], [facility] 12/10/2024 07:18:26 5 51810: Manual therapy completed Tianna Reina PTA [address], [place], [address], [facility] 12/10/2024 07:18:26 5 63662 Therapeutic Exercise (1:1) cancelled Tianna Reina PTA [address], [place], [address], [facility] 12/08/2024 10:59:13 5 68384: Hot or Cold Pack cancelled Tianna Reina BELT MEASURER [address], [place], [address], [facility] 12/08/2024 10:59:13 5 30825: Manual therapy cancelled Tianna Reina PTA [address], [place], [address], [facility] 12/08/2024 10:59:13 5 50987 Therapeutic Exercise (1:1) completed Tianna Reina PTA [address], [place], [address], [facility] 12/06/2024 06:41:24 5 04442: Hot or Cold Pack completed Tianna Reina PTA [address], [place], [address], [facility] 12/06/2024 06:41:24 5 42703: Manual therapy completed Tianna Reina PTA [address], [place], [address], [facility] 12/06/2024 06:41:24 5 22754 Therapeutic Exercise (1:1) cancelled Tianna Reina PTA [address], [place], [address], [facility] 11/30/2024 14:31:09 5 26016: Hot or Cold Pack cancelled Tianna Reina BELT MEASURER [address], [place], [address], [facility] 11/30/2024 14:31:09 5 31054: Manual therapy cancelled Tianna Reina PTA [address], [place], [address], [facility] 11/30/2024 14:31:09 5 32959 Therapeutic Exercise (1:1) completed Tianna Reina PTA [address], [place], [address], [facility] 11/29/2024 12:28:07 5 32647: Hot or Cold Pack completed Tianna Reina PTA [address], [place], [address], [facility] 11/29/2024 12:28:07 5 55096: Manual therapy completed Tianna Reina PTA [address], [place], [address], [facility] 11/29/2024 12:28:07 5 76340 Therapeutic Exercise (1:1) completed Tianna Reina PTA [address], [place], [address], [facility] 11/25/2024 18:39:00 5 87633: Hot or Cold Pack completed Tianna Reina PTA [address], [place], [address], [facility] 11/25/2024 18:39:00 5 08029: Manual therapy completed Tianna Reina PTA [address], [place], [address], [facility] 11/25/2024 18:39:00 5 15104 Therapeutic Exercise (1:1) completed Tianna Reina PTA [address], [place], [address], [facility] 11/22/2024 10:44:48 5 77922: Hot or Cold Pack completed Tianna Reina, BELT MEASURER [address], [place], [address], [facility] 11/22/2024 10:44:48 5 94985: Manual therapy completed Tianna Reina, BELT MEASURER [address], [place], [address], [facility] 11/22/2024 10:44:48 5 64429 Therapeutic Exercise (1:1) completed Tianna Naiduer, BELT MEASURER [address], [place], [address], [facility] 11/15/2024 15:07:35 5 52252: Hot or Cold Pack completed Tianna Naiduer, BELT MEASURER [address], [place], [address], [facility] 11/15/2024 15:07:35 5 33575: Manual therapy completed Tianna Reina, BELT MEASURER [address], [place], [address], [facility] 11/15/2024 15:07:35 5 [id number] Therapeutic Exercise (1:1) cancelled Tianna Reina, BELT MEASURER [address], [place], [address], [facility] 11/12/2024 18:08:49 5 09883: Hot or Cold Pack cancelled Tianna Reina, BELT MEASURER [address], [place], [address], [facility] 11/12/2024 18:08:49 5 20611: Manual therapy cancelled Tiannacj Reina, BELT MEASURER [address], [place], [address], [facility] 11/12/2024 18:08:49 5 25949 Therapeutic Exercise (1:1) completed Gail Cheston, DPT [address], [place], [address], [facility] 11/10/2024 09:57:27 5 60336: Hot or Cold Pack completed Gail Kaiser, DPT [address], [place], [address], [facility] 11/10/2024 09:57:27 5 68014: Manual therapy completed Gail Kaiser, DPT [address], [place], [address], [facility] 11/10/2024 09:57:27 5 06536 Therapeutic Exercise (1:1) completed Gail Kaiser, DPT [address], [place], [address], [facility] 11/08/2024 08:48:54 5 60480: Hot or Cold Pack completed Gail Kaiser, DPT [address], [place], [address], [facility] 11/08/2024 08:48:54 5 02652: Manual therapy completed Gail Kaiser, DPT [address], [place], [address], [facility] 11/08/2024 08:48:54 5 98982 Therapeutic Exercise (1:1) cancelled Gail Kaiser, DPT [address], [place], [address], [facility] 11/04/2024 12:08:19 5 19652: Hot or Cold Pack cancelled Gail Kaiser, DPT [address], [place], [address], [facility] 11/04/2024 12:08:19 5 42486: Manual therapy cancelled Gail Kaiser, DPT [address], [place], [address], [facility] 11/04/2024 12:08:19 4 73914 Therapeutic Exercise (1:1) cancelled Tianna Reina BELT MEASURER [address], [place], [address], [facility] 10/30/2024 13:48:44 4 44345: Hot or Cold Pack cancelled Tianna Reina BELT MEASURER [address], [place], [address], [facility] 10/30/2024 13:48:44 4 87136: Manual therapy cancelled Tianna Reina BELT MEASURER [address], [place], [address], [facility] 10/30/2024 13:48:44 4 08774 Therapeutic Exercise (1:1) cancelled Tianna Reina PTA [address], [place], [address], [facility] 10/28/2024 10:34:20 4 57840: Hot or Cold Pack cancelled Tianna Reina PTA [address], [place], [address], [facility] 10/28/2024 10:34:20 4 16025: Manual therapy cancelled Tianna Reina PTA [address], [place], [address], [facility] 10/28/2024 10:34:20 4 81944 Therapeutic Exercise (1:1) completed Tianna Reina BELT MEASURER [address], [place], [address], [facility] 10/22/2024 22:03:55 4 89086: Hot or Cold Pack completed Tianna Reina BELT MEASURER [address], [place], [address], [facility] 10/22/2024 22:03:55 4 22368: Manual therapy completed Tianna Reina, BELT MEASURER [address], [place], [address], [facility] 10/22/2024 22:03:55 4 97971 Therapeutic Exercise (1:1) completed RAD BerkowitzT [address], [place], [address], [facility] 10/20/2024 13:54:04 4 52393: Hot or Cold Pack completed Gail Kaiser DPT [address], [place], [address], [facility] 10/20/2024 13:54:04 4 57753: Manual therapy completed RAD BerkowitzT [address], [place], [address], [facility] 10/20/2024 13:54:04 4 74394 Therapeutic Exercise (1:1) completed RAD BerkowitzT [address], [place], [address], [facility] 10/13/2024 13:42:33 4 47095: Hot or Cold Pack completed RAD BerkowitzT [address], [place], [address], [facility] 10/13/2024 13:42:33 4 12968: Manual therapy completed Gail Kaiser DPT [address], [place], [address], [facility] 10/13/2024 13:42:33 49906 Therapeutic Exercise (1:1) cancelled Tianna Reina BELT MEASURER [address], [place], [address], [facility] 10/05/2024 14:40:25 4 02152: Hot or Cold Pack cancelled Tianna Nuno, BELT MEASURER [address], [place], [address], [facility] 10/05/2024 14:40:25 4 47109: Manual therapy cancelled Tianna Reina, BELT MEASURER [address], [place], [address], [facility] 10/05/2024 14:40:25 4 73791 Therapeutic Exercise (1:1) completed Tianna Reina, BELT MEASURER [address], [place], [address], [facility] 10/04/2024 06:59:14 4 28079: Hot or Cold Pack completed Tianna Reina, BELT MEASURER [address], [place], [address], [facility] 10/04/2024 06:59:14 4 86565: Manual therapy completed Tianna Reina, BELT MEASURER [address], [place], [address], [facility] 10/04/2024 06:59:14 4 44515 Therapeutic Exercise (1:1) completed Tianna Reina, BELT MEASURER [address], [place], [address], [facility] 09/29/2024 06:36:09 4 33923: Hot or Cold Pack completed Tianna Reina, BELT MEASURER [address], [place], [address], [facility] 09/29/2024 06:36:09 4 67893: Manual therapy completed Tianna Reina, BELT MEASURER [address], [place], [address], [facility] 09/29/2024 06:36:09 4 76364 Therapeutic Exercise (1:1) cancelled Gail Cheston, DPT [address], [place], [address], [facility] 09/27/2024 08:25:44 4 93253: Hot or Cold Pack cancelled Gail Kaiser, DPT [address], [place], [address], [facility] 09/27/2024 08:25:44 4 75756: Manual therapy cancelled Gail Kaiser, DPT [address], [place], [address], [facility] 09/27/2024 08:25:44 4 Trigger Point Injection w/US, 1-2 muscle(s)/regio n(s) completed Jarod Mercer MD [address], [place], [address], [facility] 09/24/2024 14:47:11 4 65848 Therapeutic Exercise (1:1) completed Gail Kaiser, DPT [address], [place], [address], [facility] 09/22/2024 14:27:50 4 33938: Hot or Cold Pack completed Gail Kaiser, DPT [address], [place], [address], [facility] 09/22/2024 14:27:50 4 49056: Manual therapy completed Gail Kaiser, DPT [address], [place], [address], [facility] 09/22/2024 14:27:50 4 87025 Therapeutic Exercise (1:1) completed Gail Kaiser, DPT [address], [place], [address], [facility] 09/20/2024 08:30:20 4 79702: Hot or Cold Pack completed Gail Kaiser DPT [address], [place], [address], [facility] 09/20/2024 08:30:20 4 99631: Manual therapy completed Gail Kaiser, DPT [address], [place], [address], [facility] 09/20/2024 08:30:20 4 75862 Therapeutic Exercise (1:1) completed Tianna Reina PTA [address], [place], [address], [facility] 09/14/2024 09:59:18 4 47262: Hot or Cold Pack completed Tianna Reina PTA [address], [place], [address], [facility] 09/14/2024 09:59:18 4 79703: Manual therapy completed Tianna Reina PTA [address], [place], [address], [facility] 09/14/2024 09:59:18 4 45506 Therapeutic Exercise (1:1) completed RAD BerkowitzT [address], [place], [address], [facility] 09/13/2024 07:52:38 4 94569: Hot or Cold Pack completed Gail Kaiser DPT [address], [place], [address], [facility] 09/13/2024 07:52:38 4 65398: Manual therapy completed Gail Kaiser DPT [address], [place], [address], [facility] 09/13/2024 07:52:38 4 34664 Therapeutic Exercise (1:1) cancelled Tianna Reina PTA [address], [place], [address], [facility] 09/09/2024 15:55:40 4 77031: Hot or Cold Pack cancelled Tianna Reina, BELT MEASURER [address], [place], [address], [facility] 09/09/2024 15:55:40 4 74977: Manual therapy cancelled Tianna Nuno BELT MEASURER [address], [place], [address], [facility] 09/09/2024 15:55:40 4 79280 Therapeutic Exercise (1:1) completed Tianna Reina PTA [address], [place], [address], [facility] 09/08/2024 14:24:35 4 66518: Hot or Cold Pack completed Tianna Reina BELT MEASURER [address], [place], [address], [facility] 09/08/2024 06:38:46 4 18403: Manual therapy completed Tianna Reina PTA [address], [place], [address], [facility] 09/08/2024 06:38:46 4 99879 Therapeutic Exercise (1:1) completed Tianna Reina PTA [address], [place], [address], [facility] 09/02/2024 12:44:36 4 18543: Hot or Cold Pack completed Tianna Reina BELT MEASURER [address], [place], [address], [facility] 09/02/2024 12:44:36 4 35624: Manual therapy completed Tianna Reina BELT MEASURER [address], [place], [address], [facility] 09/02/2024 12:44:36 98000 Therapeutic Exercise (1:1) completed Tianna Naiduer, BELT MEASURER [address], [place], [address], [facility] 08/31/2024 14:52:24 34679: Hot or Cold Pack completed Tianna Naiduer, BELT MEASURER [address], [place], [address], [facility] 08/31/2024 14:52:24 81108: Manual therapy completed Tianna Naiduer, BELT MEASURER [address], [place], [address], [facility] 08/31/2024 14:52:24 49767 Therapeutic Exercise (1:1) cancelled Tianna Naiduer, BELT MEASURER [address], [place], [address], [facility] 08/26/2024 14:25:43 02131: Hot or Cold Pack cancelled Tianna Naiduer, BELT MEASURER [address], [place], [address], [facility] 08/26/2024 14:25:43 52361: Manual therapy cancelled Tianna Reina, BELT MEASURER [address], [place], [address], [facility] 08/26/2024 14:25:43 53477 Therapeutic Exercise (1:1) cancelled Tianna Naiduer, BELT MEASURER [address], [place], [address], [facility] 08/24/2024 10:46:16 41178: Hot or Cold Pack cancelled Tianna Reina, BELT MEASURER [address], [place], [address], [facility] 08/24/2024 10:46:16 94744: Manual therapy cancelled Tianna Reina, BELT MEASURER [address], [place], [address], [facility] 08/24/2024 10:46:16 4 72402 Therapeutic Exercise (1:1) completed Tianna Reina, BELT MEASURER [address], [place], [address], [facility] 08/19/2024 15:48:53 4 17744: Hot or Cold Pack completed Tianna Reina, BELT MEASURER [address], [place], [address], [facility] 08/19/2024 15:48:53 4 32586: Manual therapy completed Tianna Nuno BELT MEASURER [address], [place], [address], [facility] 08/19/2024 15:48:53 4 91186 Therapeutic Exercise (1:1) completed Tianna Nuno BELT MEASURER [address], [place], [address], [facility] 08/18/2024 13:27:11 4 20877: Hot or Cold Pack completed Tianna Nuno BELT MEASURER [address], [place], [address], [facility] 08/18/2024 13:27:09 4 03200: Manual therapy completed Tianna Reina PTA [address], [place], [address], [facility] 08/18/2024 13:27:14 46604 Therapeutic Exercise (1:1) completed Avery Sharp PT [address], [place], [address], [facility] 08/03/2024 13:37:01 4 74292: Low complexity PT Eval completed Avery Sharp PT [address], [place], [address], [facility] 08/03/2024 13:37:04 Imaging Results None recorded. Procedure Notes None recorded. Medical Equipment None Reported. Allergies Allergen ID Allergen Name Allergen Category Reaction Reaction Severity Criticality Documentation Date Start Date Code Code System Note Provider Name and Address Organization Details Recorded Time 65809 Bactrim medicatio n Not available Not available Not available 01/05/20242007 63217 9 RxNorm Aller gyRea ction : 'Skin React ion'; Not Available [facility] 14:03:49 Medications Name Sig Start Date Stop Date Status Note LastModified by Organization Details LastModified Time cyclobenzap rine 10 mg tablet TAKE 1 TABLET BY MOUTH TWICE DAILY NEEDED FOR MUSCLE SPASM 07/16 completed Not Available Not Available Not Available paroxetine 10 mg tablet TAKE 1 AND 1/2 TABLET BY MOUTH DAILY FOR 1 WEEK OR DIRECTED 02/10 completed Not Available Not Available Not Available atorvastati n 20 mg tablet TAKE 1 TABLET (20 MG TOTAL) BY MOUTH ONE TIME EACH DAY active Not Available Not Available No t Available azithromyci n 250 mg tablet active Not Available Not Available Not Available tizanidine 4 mg tablet TAKE 1 TABLET BY MOUTH THREE TIMES A DAY NEEDED FOR SPASMS active Not Available Not Available No t Available meloxicam 15 mg tablet TAKE 1 TABLET EVERY DAY BY ORAL ROUTE AFTER MEAL(S). active Not Available Not Available No t Available prednisone 20 mg tablet Take 1 tablet every day by oral route for 5 days. 07/16 completed Not Available Not Available Not Available sumatriptan 50 mg tablet TAKE 1 TABLET BY MOUTH EVERY DAY NEEDED FOR 30 DAYS active Not Available Not Available No t Available sulindac 150 mg tablet Take 1 tablet twice a day by oral route for 30 days. active Not Available Not Available No t Available metronidazo le 500 mg tablet TAKE 1 TABLET BY MOUTH EVERY 12 HOURS FOR 7 DAYS. DO NOT DRINK ALCOHOL 04/16 completed Not Available Not Available Not Available chlorthalid one 25 mg tablet TAKE 1 TABLET BY MOUTH DAILY 04/16 completed Not Available Not Available Not Available potassium chloride ER 20 mEq tablet,exte nded release(par t/cryst) TAKE 1 TABLET BY MOUTH DAILY FOR 14 DAYS 04/16 completed Not Available Not Available Not Available benzonatate 100 mg capsule TAKE 1 CAPSULE BY MOUTH THREE TIMES A DAY NEEDED FOR COUGH active Not Available Not Available No t Available paroxetine 30 mg tablet TAKE 1 TABLET (30 MG TOTAL) BY MOUTH 1 (ONE) TIME EACH DAY IN THE MORNING. active Not Available Not Available No t Available paroxetine 20 mg tablet TAKE 1 TABLET BY MOUTH EVERY DAY *START AFTER 1 WEEK TITRATION AT 15 MG* 01/28 completed Not Available Not Available Not Available propranolol ER 80 mg capsule,24 hr,extended release TAKE 1 CAPSULE BY MOUTH EVERY DAY FOR 90 DAYS active Not Available Not Available No t Available nicotine 21 mg/24 hr daily transdermal patch APPLY 1 PATCH ONTO THE SKIN EVERY DAY active Not Available Not Available No t Available gabapentin 300 mg capsule TAKE 1 CAPSULE EVERY 8 HOURS BY ORAL ROUTE FOR 30 DAYS. active Not Available Not Available No t Available levetiracet am 750 mg tablet TAKE 1 TABLET BY MOUTH TWICE A DAY FOR 90 DAYS active Not Available Not Available No t Available zolpidem 5 mg tablet TAKE 1 TABLET BY MOUTH AT BEDTIME NEEDED FOR SLEEP. MAX DAILY AMOUNT: 5 MG active Not Available Not Available No t Available ibuprofen 600 mg tablet active Not Available Not Available Not Available methylpredn isolone 4 mg tablets in a dose pack TAKE 6 TABLETS ON DAY 1 DIRECTED ON PACKAGE AND DECREASE BY 1 TAB EACH DAY FOR A TOTAL OF 6 DAYS 07/16 completed Not Available Not Available Not Available ondansetron 4 mg disintegrat ing tablet DISSOLVE 1 TABLET ON TONGUE BY MOUTH EVERY DAY FOR 14 DAYS active Not Available Not Available No t Available losartan 100 mg tablet TAKE 1 TABLET BY MOUTH EVERY DAY active Not Available Not Available No t Available Ventolin HFA 90 mcg/actuati on aerosol inhaler INHALE 2 PUFFS BY MOUTH EVERY 4 (FOUR) HOURS IF NEEDED FOR WHEEZING OR SHORTNESS OF BREATH. active Not Available Not Available No t Available oxycodone 5 mg tablet TAKE 1 TABLET BY MOUTH EVERY 4 HOURS 10/21 completed Not Available Not Available Not Available oxycodone HCl-oxycodo ne-ASA four times a day [address] WHILE ON THIS MEDICATIO N 10/29 completed Statu s: 'Disc ontin ued'; Not Available Not Available Not Available Eliquis 5 mg tablet TAKE 1 TABLET TWICE A DAY BY ORAL ROUTE FOR 14 DAYS, FOR DVT PREVENTIO N. 10/21 completed Not Available Not Available Not Available Yuvafem 10 mcg vaginal tablet INSERT 1 TABLET VAGINALLY DAILY TWICE A WEEK BEFORE BEDTIME active Not Available Not Available No t Available Elmo DVT-PE Treatment 30-Day Starter 5 mg (74 tablets) in dose pack TAKE 2 TABLETS BY MOUTH TWICE DAILY FOR 7 DAYS THEN 1 TABLET BY MOUTH 2 TIMES DAILY FOR 23 DAYS 02/10 completed Not Available Not Available Not Available Vitals Date Recorded Body height Body mass index (BMI) Body weight Provider Name and Address Organization Details Last Updated DateTime 03/25/2025 162.56 cm 32.4 kg/m2 98412.96 g BENJAMIN BEACH [facility] 03/25/2025 12:59:22 Date Recorded Body height Body mass index (BMI) Body weight Provider Name and Address Organization Details Last Updated DateTime 04/13/2025 162.56 cm 32.6 kg/m2 10928.55 g Maru Mcintosh [facility] 04/13/2025 08:48:18 Date Recorded Body height Body mass index (BMI) Body weight Provider Name and Address Organization Details Last Updated DateTime 05/05/2025 162.56 cm 32.6 kg/m2 17698.55 g JANEE VALERA [facility] 05/05/2025 08:30:26 Social History Question Answer Notes LastModified by [employer] Details LastModified Time Tobacco Smoking Status Current Every Day Smoker Suzanne vail [facility] 01/28/2025 13:55:36 Have You Ever Been Counseled For Unhealthy Alcohol Use? No Information not available 01/28/2025 What Is Your Relationship Status? Information not available 01/28/2025 How Much Tobacco Do You Smoke? 0.25 PPD Information not available 01/28/2025 Sex: Unknown Functional Status Question Answer Note LastModified by [employer] Details LastModified Time How many times per week do you consume alcohol? Less than 1 time per week Information not available 01/28/2025 Do you use any illicit or recreational drugs? No Information not available 01/28/2025 Do you or have you ever used any other forms of tobacco or nicotine? No Information not available 01/28/2025 What is your level of alcohol consumption? Occasional Information not available 01/28/2025 Mental Status None recorded. Family History Nothing Reported. Medical History Condition Response Headaches Y Hypertension Y Gynecological HistoryNo gynecological history recorded. Obstetrics History GPAL:G 0 P 0 0 0 0 Past Encounters Encounter ID Performer Location Encounter Start Date Encounter Closed Date Diagnosis/Indication Diagnosis SNOMED-CT Code Diagnosis ICD10 Code Diagnosis Note [id number] Jarod Mercer MD [facility] [address] [place] [address] 02/06/2024 09:59:07 02/26/2024 11:18:59 Lumbar radiculopathy 803496482 M54.16 [id number] BRENT Lema [address] [place] [address] 02/11/2024 12:53:11 02/11/2024 13:49:43 Partial thickness rotator cuff tear 477089560 M75.343 [id number] MD Isac Arango [address] [place] [address] 04/08/2024 10:26:00 04/30/2024 13:20:16 Pain of right shoulder joint 6499641103 [id number] M25.377 [id number] Jarod Mercer MD [facility] [address] [place] [address] 04/16/2024 10:35:18 05/20/2024 16:56:11 Low back pain 159885256 M54.50 [id number] MD Isac Stacy [address] [place] [address] 04/16/2024 12:21:54 04/16/2024 12:28:54 [id number] BRENT Chambers [address] [place] [address] 05/03/2024 15:21:13 06/07/2024 15:51:26 Postoperative care 548681402 Z48.89 [id number] Philly Mol-Carlos , PA-C [facility] [address] [place] [address] 05/03/2024 15:38:58 05/31/2024 14:28:05 Low back pain 894105862 M54.50 Lumbar radiculopathy 128 814988 M54.16 [id number] Landon Guerrero PA-C [facility] [address] [place] [address] 05/20/2024 12:39:59 05/20/2024 13:51:14 Partial thickness rotator cuff tear 790424629 M75.287 [id number] Jarod Mercer MD [facility] [address] [place] [address] 06/25/2024 14:36:09 07/20/2024 11:13:32 Lumbar radiculopathy 504641310 M54.16 [id number] Brandon Tavarez MD [facility] [address] [place] [address] 07/16/2024 10:11:32 08/09/2024 13:18:10 Pain of right shoulder joint 1361411366 [id number] M25.265 [id number] Avery Sharp, PT [facility] [address] [place] [address] 08/03/2024 12:48:15 08/03/2024 14:25:41 Rupture of rotator cuff of right shoulder [id number] M75.880 [id number] Landon Guerrero PA-C [facility] [address] [place] [address] 08/05/2024 10:12:21 08/25/2024 12:51:28 Full thickness rotator cuff tear [id number] M75.561 [id number] Tianna Reina [employer] [facility] [address] [place] [address] 08/18/2024 12:38:13 08/18/2024 13:51:47 Rupture of rotator cuff of right shoulder [id number] M75.546 [id number] Tianna Reina [facility] [address] [place] [address] 08/20/2024 13:23:54 08/20/2024 14:08:57 Rupture of rotator cuff of right shoulder [id number] M75.934 [id number] Jarod Mercer MD [facility] [address] [place] [address] 08/20/2024 13:57:12 09/13/2024 15:26:45 Lumbar radiculopathy [id number] M54.16 [id number] Tianna Reina, [facility] [address] [place] [address] 09/01/2024 13:38:39 09/01/2024 15:24:11 Rupture of rotator cuff of right shoulder [id number] M75.411 [id number] Tianna Reina, [facility] [address] [place] [address] 09/03/2024 13:38:22 09/03/2024 15:15:45 Rupture of rotator cuff of right shoulder [id number] M75.197 [id number] Tianna Reina, [facility] [address] [place] [address] 09/08/2024 13:14:28 09/08/2024 16:00:32 Rupture of rotator cuff of right shoulder [id number] M75.891 [id number] Gail Kaiser, DPT [facility] [address] [place] [address] 09/13/2024 13:36:40 09/13/2024 15:56:08 Rupture of rotator cuff of right shoulder [id number] M75.748 [id number] Tianna Reina, [facility] [address] [place] [address] 09/15/2024 09:18:48 09/15/2024 10:50:53 Rupture of rotator cuff of right shoulder [id number] M75.810 [id number] Brandon Tavarez MD [facility] [address] [place] [address] 09/15/2024 10:04:52 10/12/2024 09:53:56 Traumatic right rotator cuff tear [id number] S46.011D [id number] Gail Kaiser DPT [facility] [address] [place] [address] 09/20/2024 14:09:32 09/20/2024 15:03:52 Rupture of rotator cuff of right shoulder [id number] M75.688 [id number] Gail Kaiser, DPT [facility] [address] [place] [address] 09/22/2024 14:13:31 09/22/2024 15:09:29 Rupture of rotator cuff of right shoulder 3078283610 [id number] M75.986 [id number] Jarod Mercer MD [facility] [address] [place] [address] 09/24/2024 13:40:40 10/23/2024 19:35:25 Lumbar radiculopathy [id number] M54.16 [id number] Tianna Reina [facility] [address] [place] [address] 09/29/2024 12:49:58 09/29/2024 14:10:42 Rupture of rotator cuff of right shoulder [id number] M75.042 [id number] Tianna Reina [facility] [address] [place] [address] 10/04/2024 12:44:18 10/04/2024 13:48:44 Rupture of rotator cuff of right shoulder [id number] M75.770 [id number] Gail Kaiser, DPT [facility] [address] [place] [address] 10/13/2024 13:36:28 10/13/2024 14:11:21 Rupture of rotator cuff of right shoulder [id number] M75.093 [id number] Gail Kaiser, DPT [facility] [address] [place] [address] 10/20/2024 13:41:46 10/20/2024 14:15:08 Rupture of rotator cuff of right shoulder [id number] [id number] M75.741 [id number] BRENT Malin [address] [place] [address] 10/21/2024 09:43:38 11/15/2024 15:28:06 Pain of right shoulder joint [id number] M25.511 Postoperative visit 1836 24057 Z48.89 [id number] Tianna Nuno, [facility] [address] [place] [address] 10/25/2024 12:35:11 10/25/2024 15:42:15 Rupture of rotator cuff of right shoulder [id number] M75.819 [id number] Gail Kaiser, DPT [facility] [address] [place] [address] 11/08/2024 13:44:37 11/08/2024 15:39:25 Rupture of rotator cuff of right shoulder [id number] M75.324 [id number] Gail Kaiser, DPT [facility] [address] [place] [address] 11/10/2024 13:40:50 11/10/2024 14:21:49 Rupture of rotator cuff of right shoulder [id number] M75.562 [id number] Tianna Reina [employer] [facility] [address] [place] [address] 11/17/2024 12:45:08 11/17/2024 13:56:08 Rupture of rotator cuff of right shoulder [id number] M75.540 [id number] Tianna Reina [employer] [facility] [address] [place] [address] 11/24/2024 13:40:00 11/24/2024 14:45:01 Rupture of rotator cuff of right shoulder [id number] M75.856 [id number] Jarod Mercer MD [facility] [address] [place] [address] 11/23/2024 14:42:19 12/02/2024 06:48:03 Lumbar radiculopathy [id number] M54.16 [id number] Tianna Reina, [employer] [facility] [address] [place] [address] 11/26/2024 10:22:12 11/26/2024 14:45:17 Rupture of rotator cuff of right shoulder [id number] M75.203 [id number] Brandon Tavarez MD [facility] [address] [place] [address] 11/26/2024 09:42:05 12/07/2024 13:23:49 Traumatic right rotator cuff tear [id number] S46.011D [id number] Tianna Reina [employer] [address] [place] [address] 11/30/2024 12:16:37 11/30/2024 13:34:38 Rupture of rotator cuff of right shoulder [id number] M75.276 [id number] Tianna Reina [employer] [address] [place] [address] 12/07/2024 11:37:23 12/07/2024 13:20:41 Rupture of rotator cuff of right shoulder [id number] [id number] M75.534 [id number] Tianna Reina [employer] [address] [place] [address] 12/14/2024 11:41:03 12/14/2024 13:12:34 Rupture of rotator cuff of right shoulder [id number] M75.459 [id number] Tianna Reina [employer] [address] [place] [address] 12/23/2024 11:38:19 12/23/2024 12:46:23 Rupture of rotator cuff of right shoulder 6264233863 [id number] M75.121 [id number] Tianna Reina, [facility] ME[facility] [address] [place] [address] 12/28/2024 14:42:38 12/28/2024 16:23:35 Rupture of rotator cuff of right shoulder [id number] M75.225 [id number] Tianna Nuno, [facility] [address] [place] [address] 12/31/2024 14:01:53 01/03/2025 06:44:34 Rupture of rotator cuff of right shoulder 3889511354 [id number] M75.981 [id number] Jarod Mercer MD [facility] [address] [place] [address] 12/31/2024 13:29:20 01/14/2025 17:54:52 Lumbar radiculopathy [id number] M54.16 [id number] Tianna Reina, [facility] [address] [place] [address] 01/05/2025 13:05:47 01/05/2025 14:11:11 Rupture of rotator cuff of right shoulder 8255098944 [id number] M75.296 [id number] Gail Kaiser, DPT [facility] [address] [place] [address] 01/21/2025 09:44:05 01/21/2025 13:13:25 Low back pain [id number] M54.50 [id number] Tianna Katz PA-C [facility] [address] [facility] [address] [place] [address] 01/28/2025 13:50:25 02/10/2025 12:52:46 Postoperative visit [id number] Z48.89 [id number] Tianna Reina, [facility] [address] [place] [address] 02/01/2025 10:12:52 02/01/2025 10:53:17 Low back pain [id number] M54.50 [id number] ADIEL COSTA PA-C [facility] [address] [place] [address] 02/25/2025 10:28:18 03/04/2025 12:11:14 Lumbar radiculopathy [id number] M54.16 [id number] Gail Kaiser, DPT [facility] [address] [place] [address] 03/04/2025 10:10:02 03/04/2025 11:06:04 Low back pain [id number] M54.50 [id number] Tianna Nuno, BEL[facility] ME[facility] [address] [place] [address] 03/08/2025 13:27:24 03/08/2025 14:41:01 Low back pain [id number] M54.50 [id number] Brandon Tavarez MD [facility] [address] [facility] [address] [place] [address] 03/25/2025 12:38:31 04/04/2025 15:48:29 Pain of right shoulder joint [id number] M25.415 [id number] ADIEL COSTA PA-C [facility] [address] [place] [address] 04/13/2025 08:30:37 04/18/2025 14:19:57 Lumbar radiculopathy [id number] M54.16 [id number] Landon Guerrero PA-C [facility] [address] [facility] [address] [place] [address] 05/05/2025 08:18:26 05/16/2025 16:11:46 Pain of right shoulder joint [id number] [id number] M25.511 Health Concerns Section Related Observation LastModified by Organization Detai ls LastModified Time None Recorded Concern Status LastModified by Organization Details LastModified Time None Recorded Advance Directives Directive None Recorded Payers Insurance Date Sequence Insurance Name Policy Number Policy Tinsley Covered Member ID Tinsley Member ID Guarantor Name 10/08/2024 [employer] [facility] Amrita Glez OBGyn Episode No OBEpisode recorded.
--- NOTE | 2025-05-30 15:26 | MHC.OFFVIS ---
Vital Signs 05/30/25 15:27 Height 5 ft 4 in Intake Visit Reasons: 6 mnts f/u Allergies sulfamethoxazole (From Bactrim) Allergy (Verified 05/30/25 15:31) Hives trimethoprim (From Bactrim) Allergy (Verified 05/30/25 15:31) Hives Medication List - Last Reconciled 05/30/25 by Yamilet Selby CNP azithromycin For 250 mg dose pack: take 500 mg today (day 1), then 250 mg for 4 days (days 2-5) benzonatate 100 mg PO TID PRN gabapentin 300 mg PO Q8H ibuprofen 600 mg PO Q6H PRN levetiracetam 750 mg PO BID losartan 100 mg PO DAILY meloxicam 15 mg PO DAILY ondansetron 4 mg PO Q8H PRN paroxetine HCl 30 mg PO QAM propranolol ER 80 mg PO DAILY sumatriptan succinate 50 mg PO DAILY PRN zolpidem 5 mg PO BEDTIME PRN HPI Comments Details: 50-year-old woman with the anemia, asthma, migraine headaches, and seizure disorder. She has been out of work since 12/2022 due to work related injury. She was following with [facility] for neck pain and [facility] for shoulder and low back pain. She had few spells, where it felt like seizure is going to happen, but did not pass out. Everything around her starts moving and gets sharp pain in center of chest, and has to sit down. It lasts for about 20 minutes. No LOC. No falls. No missed doses of levetiracetam. No headaches with these episodes. No specific trigger. It has been happening 2-3x/week for the last 2 months. She also has some intermittent numbness and tingling to both arms and legs. She tried and failed injections to neck and surgical intervention was being considered. She was waiting to find out if C-Spine MRI would be approved. She was scheduled for appointment tomorrow for LS MRI results. Migraines have been off and on. She could have 4 migraines one week and none the next week. Migraines were happening about 15x/month. Sumatriptan as needed helped. Sleep was okay with medication, but her partner noted that she was snoring and sounded like she was gasping for air at times. [facility] Medical History (Updated 05/30/25 @ 15:53 by Yamilet Selby CNP) Cerebral microvascular disease Hypertension Anxiety Migraine without aura Epilepsy Social History (System 09/25/22 @ 14:45 by Inessa Carrion) Alcohol intake: current Alcohol intake frequency: holidays/special occasions only Review of Systems Const Denies chills, Denies daytime sleepiness, Reports difficulty sleeping, Denies fatigue, Denies fever(s), Denies frequent falls, Reports headache(s), Denies increased appetite, Denies poor appetite, Reports snoring, Denies weakness, Denies weight gain and Denies weight loss Eyes Denies loss of vision ENT Denies vertigo, Reports dizziness and Reports headache(s) Card Denies chest pain at rest, Denies chest pain with activity, Denies syncope, Denies leg edema and Denies palpitations Resp Reports snoring GI Denies constipation, Denies heartburn, Denies diarrhea and Denies nausea Denies urinary frequency, Denies urinary incontinence and Denies urinary urgency Musc Denies abnormal gait, Reports numbness and Reports tingling Skin/Breast Denies dry skin and Denies rash Neuro Denies abnormal gait, Denies vertigo, Reports dizziness, Denies syncope, Denies frequent falls, Reports headache(s), Denies lack of coordination, Denies loss of vision, Denies memory loss, Reports numbness, Denies restless legs, Reports seizure-like activity, Reports tingling, Denies paresthesias, Denies tremor(s) and Denies weakness Psych Reports anxiety, Reports depression, Denies auditory hallucinations, Denies memory loss, Denies visual hallucinations and Denies suicidal ideation Endo Denies fatigue and Denies palpitations Physical Exam Const Other: General Appearance:? normal, in no acute distress. Skin:? no rashes, no significant birthmarks. Heart:? S1, S2 normal, no murmurs. Lungs:? clear anteriorly and posteriorly. Extremities:? no edema. Psych:? alert, oriented, cognitive function intact, cooperative with exam. Neuro Other: Mental Status:?Normal attention, orientation, memory and affect.? Cranial Nerves:?Pupils are equal, round and reactive to light. External occular muscles are intact. Visual jerome are full. Face is symmetrical. Facial sensations are normal. Tongue is midline. Palate elevates symmetrically. Shoulder shrugging is normal. Hearing to bedside conversation is normal. Sensory Exam:?....? Coordination:?No ataxia,?no titubation.? Gait Exam: Within normal limits. Cerebellar Signs:?Qwwbvg-vb-lveh and ggcq-mn-kviy is normal.? Extrapyramidal System:?No tremor, rigidity with normal facial expressions.? Pronator Drift:?Not present.? Involuntary Movements:?No tremors seen.? Speech:?Normal.? Results Reviewed Results Reviewed: Amb EEG at [facility] in 2021: [place] kwok [place] [facility] [place]: mild cortical parietal atrophy EEG at office in April 2020: WNL [place] [facility] [place]: WNL EEG at [place] in April 2017: WNL Assessment & Plan Assessment & Plan (1) Epilepsy: Code(s): G40.909 - Epilepsy, unspecified, not intractable, without status epilepticus Category: Medical Qualifiers: Epilepsy type: unspecified Intractability: not intractable Status epilepticus: without status epilepticus Qualified Code(s): G40.909 - Epilepsy, unspecified, not intractable, without status epilepticus Plan: Continue levetiracetam 750mg 1 tablet twice a day for now Will check levetiracetam level Given presyncope symptoms and chest pain with episodes, with order 48hr Holter. EEG ordered. (2) Migraine without aura: Code(s): G43.009 - Migraine without aura, not intractable, without status migrainosus Category: Medical Qualifiers: Status migrainosus presence: without status migrainosus Intractability: not intractable Qualified Code(s): G43.009 - Migraine without aura, not intractable, without status migrainosus Plan: Continue propranolol ER 80mg 1 capsule daily Continue sumatriptan 50mg 1 tablet as needed for migraine Continue ondansetron 4mg 1 tablet as needed for nausea (3) Migraine equivalent: Code(s): G43.109 - Migraine with aura, not intractable, without status migrainosus Category: Medical (4) DANIEL (obstructive sleep apnea): Code(s): G47.33 - Obstructive sleep apnea (adult) (pediatric) Category: Medical Plan: Home sleep study ordered. Plan Meds tried: propranolol, topiramate, amitriptyline, Aimovig, sumatriptan, Motrin, Tylenol Orders: Orders EEG electroencephalogram Today G40.909 - Epilepsy, unspecified, not intractable, without status epilepticus RT home sleep study Today G47.33 - Obstructive sleep apnea (adult) (pediatric) ECG holter monitor 48 hour Today G40.909 - Epilepsy, unspecified, not intractable, without status epilepticus, R55 - Syncope and collapse Levetiracetam Keppra Today G4090 - Epilepsy, unspecified, not intractable, without status epilepticus Medications: New levetiracetam 750 mg PO BID 180 tabs 1RF 90 days Coding Level of Care Code Est Pt Level 4 (05833) Diagnoses Nonintractable epilepsy without status epilepticus, unspecified epilepsy type G40.909 Epilepsy type: unspecified Intractability: not intractable Status epilepticus: without status epilepticus Migraine without aura and without status migrainosus, not intractable G43.009 Status migrainosus presence: without status migrainosus Intractability: not intractable Migraine equivalent G43.109 DANIEL (obstructive sleep apnea) G47.33
== END 2025-05-30 16:01 | disposition home or self-care (01) ==
LOC: HO.HSM 14:38
PROVIDERS: PCP Internal Medicine; Supervising Provider Internal Medicine; Visit Provider Registered Nurse
DX: G40.909 Epilepsy, unspecified, not intractable, without status epilepticus (principal); G43.009 Migraine without aura, not intractable, without status migrainosus; G43.109 Migraine with aura, not intractable, without status migrainosus; G47.33 Obstructive sleep apnea (adult) (pediatric)
CPT/HCPCS: 99214

== ENCOUNTER → 2025-05-30 14:38 | Outpatient (BNVA) | payer OTHER, SELFPAY | PROVIDERS: PCP Internal Medicine; Visit Provider Registered Nurse | DX: G40.909 Epilepsy, unspecified, not intractable, without status epilepticus (principal); G43.109 Migraine with aura, not intractable, without status migrainosus; G47.33 Obstructive sleep apnea (adult) (pediatric); R55 Syncope and collapse; Z79.899 Other long term (current) drug therapy | CPT/HCPCS: 99212 ==

== ENCOUNTER 2025-06-15 13:43 | Outpatient (REF) | payer OTHER, SELFPAY ==
--- NOTE | 2025-06-15 13:58 | EEG_ITS ---
This is a 16 channel EEG with an EKG lead. Patient is reported awake during the tracing. Background EEG rhythm is about 10 hertz 5-20 microvolt posteriorly and lower amplitude fast anteriorly. Photic stimulation does not produce any significant driving. Hyperventilation is unremarkable. No sharp wave spikes or paroxysmal tendency noted. Impression: Unremarkable EEG MTDD
--- OUTSIDE RECORDS SUMMARY | 2025-06-15 14:08 | XMS_ITS | Clinical Summary ---
Author Organization [facility] Address [address] [id number] Care Team Providers Care Terminal Worker Name Role Phone Pedro Milan Primary Care [...] age to complete this topic Care Teams Terminal Worker Relationship Specialty Start Date End Date Pedro Milan [employer] [address] [place] [address] PCP - General Internal Medicine 01/21/24
--- OUTSIDE RECORDS SUMMARY | 2025-06-15 14:09 | XMS_ITS | Clinical Summary ---
Author Organization [facility] [address] [place] [address] Address [address] [place] [address] Phone Care Team Providers Care Recovery Specialist Name Role Phone Pedro Milan MD Primary [...] (two) times a day. 11/26/19 25 Active tirzepatide, weight loss, (Zepbound) 2.5 mg/0.5 mL solution Inject 2.5 mg under the skin every 7 (seven) days. 2 mL 01/25/20 25 Active atorvastatin (LIPITOR) 20 mg tablet Take 1 tablet (20 mg total) by mouth 1 (one) time each day. 30 each 5 02/02/20 25 2024 Active losartan (COZAAR) 100 mg tablet TAKE 1 TABLET BY MOUTH EVERY DAY 90 tablet 1 03/21/20 25 Active PARoxetine (PAXIL) 30 mg tablet TAKE 1 TABLET (30 MG TOTAL) BY MOUTH 1 (ONE) TIME EACH DAY IN THE MORNING. 90 tablet 05/03/20 25 2024 Active Ventolin HFA 90 mcg/actuation inhalerIndication s:Mild intermittent asthma without complication INHALE 2 PUFFS BY MOUTH EVERY 4 (FOUR) HOURS IF NEEDED FOR WHEEZING OR SHORTNESS OF BREATH. 18 each 05/30/20 25 Active zolpidem (AMBIEN) 5 mg tablet Take 1 tablet (5 mg total) by mouth at bedtime as needed for sleep. Max Daily Amount: 5 mg 30 tablet 05/31/20 25 Active albuterol HFA (ProAir HFA) 90 mcg/actuation inhalerIndication s:Mild intermittent asthma without complication Inhale 2 puffs by mouth every 4 (four) hours if needed for wheezing or shortness of breath. 8.5 g 01/25/20 25 2024 Discontinued zolpidem (AMBIEN) 5 mg tablet Take 1 tablet (5 mg total) by mouth at bedtime as needed for sleep. Max Daily Amount: 5 mg 30 tablet 01/25/20 25 2024 Discontinued(R eorder) Active Problems Problem Noted Date Diagnosed Date [...] COMMENT: fibroid embolization OTHER SURGICAL HISTORY PROCEDURE: NM COLPOPEXY VAGINAL EXTRAPERITONEAL APPROACH OTHER SURGICAL HISTORY PROCEDURE: NM REPAIR RECTOCELE SEPARATE PROCEDURE COLONOSCOPY 02/07/20 PROCEDURE: HISTORICAL COLONOSCOPY; COMMENT: No gross masses or polyps, poor prep-diminutive polyps could not be ruled out. Some diverticulosis distal sigmoid colon and spasticity present. COLONOSCOPY 07/03/20 PROCEDURE: HISTORICAL COLONOSCOPY ESOPHAGOGASTRODUODENOSCOPY 07/03/20 PROCEDURE: NM ESOPHAGOGASTRODUODENOSCOPY TRANSORAL DIAGNOSTIC BREAST BIOPSY 2016 Left [...] and ovarian ca Prostate cancer Paternal Grandfather Adelanio dial ysis also Diabetes Paternal Grandmother osteopo [...] care for your loved ones. For example, children's entertainer or elderly care for an older adult? [...] 01/27/2026 01/27/2025, 05/24/2024 Breast Cancer Screening 11/02/2026 11/02/20, 10/20/2024, 10/14/2023, Additional history exists Cholesterol Screening [...] LAB CHEMISTRY METHOD 01/27/2025 3:43 PM EDT [facility] Triglycerides 158(H) 0 - 150 mg/dL LAB CHEMISTRY METHOD 01/27/2025 3:43 PM EDT [facility] HDL 66 >=40 mg/dL LAB CHEMISTRY METHOD 01/27/2025 3:43 PM EDT [facility] LDL Calculated 161(H) 0 - 100 mg/dL LAB CHEMISTRY METHOD 01/27/2025 3:43 PM EDT [facility] VLDL Cholesterol Imer 31.6 mg/dL LAB CHEMISTRY METHOD 01/27/2025 3:43 PM EDT [facility] Non HDL Chol. (LDL+VLDL) 193(H) <145 mg/dL LAB CHEMISTRY METHOD 01/27/2025 3:43 PM EDT [facility] Chol/HDL Ratio 3.9 0.0 - 4.4 LAB CHEMISTRY METHOD 01/27/2025 3:43 PM EDT [facility] Blood Venous blood specimen / Unknown Venipuncture / Unknown 01/27/2025 10:44 AM EDT 01/27/2025 10:44 AM EDT us Shira Mike PA LAB BLOOD ORDERABLES Final Resul t [facility] [address] [place] [address], [place] [phone] * (ABNORMAL) Comprehensive metabolic panel (01/27/2025 10:44 AM EDT) Sodium 140 133 - 145 mmol/L LAB CHEMISTRY METHOD 01/27/2025 3:43 PM EDT [facility] Potassium 4.4 3.5 - 5.5 mmol/L LAB CHEMISTRY METHOD 01/27/2025 3:43 PM EDT [facility] Chloride 107 96 - 110 mmol/L LAB CHEMISTRY METHOD 01/27/2025 3:43 PM EDT [facility] CO2 26 21 - 32 mmol/L LAB CHEMISTRY METHOD 01/27/2025 3:43 PM EDT [facility] Anion Gap 7 3 - 11 LAB CHEMISTRY METHOD 01/27/2025 3:43 PM [facility] Glucose 110(H) 70 - 100 mg/dL LAB CHEMISTRY METHOD 01/27/2025 3:43 PM [facility] BUN 15 5 - 25 mg/dL LAB CHEMISTRY METHOD 01/27/2025 3:43 PM [facility] Creatinine 0.70 0.50 - 1.10 mg/dL LAB CHEMISTRY METHOD 01/27/2025 3:43 PM [facility] eGFR 107 >=60 mL/min/1. 73m2 LAB CHEMISTRY METHOD 01/27/2025 3:43 PM [facility] Comment:Calculation based on the Chronic Kidney Disease Epidemiology Collaboration (CKD-EPI) equation refit without adjustment for race. BUN/Creatinine Ratio 21.4 LAB CHEMISTRY METHOD 01/27/2025 3:43 PM [facility] Calcium 9.6 8.5 - 10.5 mg/dL LAB CHEMISTRY METHOD 01/27/2025 3:43 PM [facility] AST (SGOT) 17 10 - 42 unit/L LAB CHEMISTRY METHOD 01/27/2025 3:43 PM [facility] ALT (SGPT) 36 10 - 60 unit/L LAB CHEMISTRY METHOD 01/27/2025 3:43 PM [facility] Alkaline Phosphatase 131(H) 42 - 121 unit/L LAB CHEMISTRY METHOD 01/27/2025 3:43 PM [facility] Total Protein 7.4 6.0 - 8.0 g/dL LAB CHEMISTRY METHOD 01/27/2025 3:43 PM [facility] Albumin 4.2 3.2 - 5.0 g/dL LAB CHEMISTRY METHOD 01/27/2025 3:43 PM [facility] Total Bilirubin 0.5 0.0 - 1.4 mg/dL LAB CHEMISTRY METHOD 01/27/2025 3:43 PM EDT [facility] Blood Venous blood specimen / Unknown Venipuncture / Unknown 01/27/2025 10:44 AM EDT 01/27/2025 10:44 AM EDT us Shira Mike HOOPER LAB BLOOD ORDERABLES Final Resul t [facility] [address] [place] [address], [place] [phone] * (ABNORMAL) MG Mammo Digital Diagnostic w [...] biopsy of left breast recommended. MAMMO LOCATION: [facility], [address] [place] [address], [id number], . -------- FINAL REPORT -------- Dictated By: Shilpa Jimenez Dictated Date: 11/02/2024 11:39 ET Assigned Physician: Shilpa Jimenez Reviewed and Electronically Signed By: Shilpa Jimenez Signed Date: 11/02/2024 11:52 ET Workstation ID: [id number] Transcribed By: Self Edit Transcribed Date: 11/02/2024 [...] biopsy of left breast recommended. MAMMO LOCATION: [facility], [address] [place] [address], [address], . -------- FINAL REPORT -------- Dictated By: Shilpa Jimenez Dictated Date: 11/02/2024 11:39 ET Assigned Physician: Shilpa Jimenez Reviewed and Electronically Signed By: Shilpa Jimenez Signed Date: 11/02/2024 11:52 ET Workstation ID: [id number] Transcribed By: Self Edit Transcribed Date: 11/02/2024 11:39 ET Pedro Milan MD IMG BI PROCEDURES Sara l Result from Last 3 Months or Most Recently Relevant to Health Maintenance Insurance [facility] [employer] Care Teams Recovery Specialist Relationship Specialty Start Date End Date Pedro Milan MD [address] [place] [address] PCP - General 09/16/22
--- NOTE | 2025-06-15 15:10 | HM_ITS ---
Conclusion: 1. Patient was monitored for total period of 2 days 2. Baseline was normal sinus rhythm with average heart of 76 beats per minute 3. No significant arrhythmias or pauses noted 4. Patient marked the counter 8 times with various symptoms including shortness of breath, dizziness, chest pain, palpitations, correlating with sinus rhythm MTDD
[2025-06-18 13:18] LABS: Levetiracetam Keppra 13.6 mcg/mL (6.0-46.0)
== END 2025-06-15 13:44 | disposition home or self-care (01) ==
LOC: HO.NEURO 13:43
PROVIDERS: PCP Internal Medicine; Visit Provider Registered Nurse
DX: G40.909 Epilepsy, unspecified, not intractable, without status epilepticus (principal); R55 Syncope and collapse
CPT/HCPCS: 36415; 80177; 93225; 95816

== ENCOUNTER → 2025-06-15 13:58 | Outpatient (BNV) | payer OTHER, SELFPAY | PROVIDERS: PCP Internal Medicine; Visit Provider Psychiatry & Neurology Neurology | DX: G40.909 Epilepsy, unspecified, not intractable, without status epilepticus (principal) | CPT/HCPCS: 95816 ==

== ENCOUNTER → 2025-06-15 15:10 | Outpatient (BNV) | payer OTHER, SELFPAY | PROVIDERS: PCP Internal Medicine; Visit Provider Internal Medicine Cardiovascular Disease | DX: R06.02 Shortness of breath (principal); R07.9 Chest pain, unspecified; R00.2 Palpitations | CPT/HCPCS: 93227 ==

== ENCOUNTER → 2025-08-01 13:44 | Outpatient (REF) | payer OTHER, SELFPAY ==
--- OUTSIDE RECORDS SUMMARY | 2025-08-01 15:21 | XMS_ITS | Clinical Summary ---
Author Organization [facility] [address] [place] [address] Address [address] [place] [address] Phone Care Team Providers Care Bindery Machine Operator Name Role Phone Pedro Milan MD Primary Care Provider Allergies Active Allergy Reactions Criticality Noted Date Comments Sulfamethoxazole-Trimethoprim Itching 2014 Medications ondansetron ODT (ZOFRAN-ODT) 4 mg disintegrating tablet Take 1 tablet (4 mg total) by mouth. 1 Active propranolol LA (INDERAL LA) 80 mg 24 hr capsule 2 Active SUMAtriptan (IMITREX) 100 mg tablet May repeat dose once after 2 hours, if needed. 5 Active levETIRAcetam (KEPPRA) 750 mg tablet Take 1 tablet (750 mg total) by mouth 2 (two) times a day. for 90 days 4 Active tiZANidine (ZANAFLEX) 4 mg tablet TAKE 1 TABLET BY MOUTH THREE TIMES A DAY NEEDED FOR SPASMS 4 Active sulindac (CLINORIL) 150 mg tablet Take 1 tablet (150 mg total) by mouth 2 (two) times a day. 5 Active tirzepatide, weight loss, (Zepbound) 2.5 mg/0.5 mL solution Inject 2.5 mg under the skin every 7 (seven) days. 2 mL 5 Active atorvastatin (LIPITOR) 20 mg tablet Take 1 tablet (20 mg total) by mouth 1 (one) time each day. 30 each 5 5 Active losartan (COZAAR) 100 mg tablet TAKE 1 TABLET BY MOUTH EVERY DAY 90 tablet 1 5 Active PARoxetine (PAXIL) 30 mg tablet TAKE 1 TABLET (30 MG TOTAL) BY MOUTH 1 (ONE) TIME EACH DAY IN THE MORNING. 90 tablet 5 10/30/20 25 Active Ventolin HFA 90 mcg/actuation inhalerIndications :Mild intermittent asthma without complication INHALE 2 PUFFS BY MOUTH EVERY 4 (FOUR) HOURS IF NEEDED FOR WHEEZING OR SHORTNESS OF BREATH. 18 each 5 Active zolpidem (AMBIEN) 5 mg tablet Take 1 tablet (5 mg total) by mouth at bedtime as needed for sleep. Max Daily Amount: 5 mg 30 tablet 5 Active Active Problems Problem Noted Date Diagnosed [...] in bx. Repeat pap 6 mo. Immunizations Immunization Administration Dates Next Due Influenza, Unspecified 08/02/2022,07/23/2016 [employer] SARS-CoV-2 COVID-19, mRNA, LNP-S, preservative free 01/09/2021,12/19/2020 [...] COMMENT: fibroid embolization OTHER SURGICAL HISTORY PROCEDURE: AL COLPOPEXY VAGINAL EXTRAPERITONEAL APPROACH OTHER SURGICAL HISTORY PROCEDURE: AL REPAIR RECTOCELE SEPARATE PROCEDURE COLONOSCOPY 02/07/20 PROCEDURE: HISTORICAL COLONOSCOPY; COMMENT: No gross masses or polyps, poor prep-diminutive polyps could not be ruled out. Some diverticulosis distal sigmoid colon and spasticity present. COLONOSCOPY 07/03/20 PROCEDURE: HISTORICAL COLONOSCOPY ESOPHAGOGASTRODUODENOSCOPY 07/03/20 PROCEDURE: AL ESOPHAGOGASTRODUODENOSCOPY TRANSORAL DIAGNOSTIC BREAST BIOPSY 2016 Left [...] care for your loved ones. For example, child care lead teacher or elderly care for an older [...] Date Recorded What is your living situation? Unrecognized valu e 01/24/2025 Comments No Sex and Gender Information [...] and At-Risk Patients (6 to 49 Years) (2 of 2 - PCV) 05/12/2016 05/12/2015, 06/26/2008 HIV Screening 10/11/2022 Hepatitis C Screening 10/11/2022 DTaP,Tdap,and Td Vaccines (2 - Td or Tdap) 05/12/2025 05/12/2015 COVID-19 Vaccine ( - season) 2025 01/09/2021, 12/19/2020 Influenza Vaccine (#1) 2025 08/02/2022, 2015 Social Influencers of Health Screening 01/24/2026 01/24/2025 Hypertension/CHF/CAD Annual BMP Blood Test 01/27/2026 01/27/2025, 05/24/2024 Breast Cancer Screening 11/02/2026 11/02/20, 10/20/2024, 10/14/2023, Additional history exists Cholesterol Screening (Lipid Panel) 01/27/2030 01/27/2025, 05/24/2024, 05/04/2020 Colorectal Cancer Screening: Colonoscopy 07/03/2031 07/03/2021 RSV Immunization Adult Patients (1 - 1-dose 75+ series) 2051 Depression Screening Completed 01/24/2025 HIB Vaccines Aged [...] Procedure Name Priority Date/Time Associated Diagnosis Comments EXTERNAL CLINICAL LAB 06/15/2025 EXTERNAL CLINICAL LAB 06/15/2025 EXTERNAL CLINICAL LAB 06/15/2025 EXTERNAL NEUROLOGY REPORT 06/15/2025 COMPREHENSIVE METABOLIC PANEL Routine 01/27/2025 10:44 AM EDT Primary hypertension LIPID PANEL WITH REFLEX TO DIRECT LDL Routine 01/27/2025 10:44 AM EDT Mixed hyperlipidemia MG MAMMO DIGITAL DIAGNOSTIC W LEA LEFT Routine 11/02/2024 10:02 AM EST Abnormal mammogram from Last 3 Months or Most Recently Relevant to Health Maintenance Results * External clinical lab (06/15/2025) Only the most recent of3 resultswithin the time period is included. Provider [facility] LAB BLOOD ORDERABLES Fin al Result * External Neurology Report (06/15/2025) Provider [facility] NEUROLOGY ORDERABLES Fin al Result * (ABNORMAL) Lipid panel with reflex to direct LDL (01/27/2025 10:44 AM EDT) Cholesterol 259(H) 0 - 200 mg/dL LAB CHEMISTRY METHOD 01/27/2025 3:43 PM EDT [facility] Triglycerides 158(H) 0 - 150 mg/dL LAB CHEMISTRY METHOD 01/27/2025 3:43 PM EDT [facility] HDL 66 >=40 mg/dL LAB CHEMISTRY METHOD 01/27/2025 3:43 PM EDT [facility] LDL Calculated 161(H) 0 - 100 mg/dL LAB CHEMISTRY METHOD 01/27/2025 3:43 PM EDT [facility] VLDL Cholesterol Imer 31.6 mg/dL LAB CHEMISTRY METHOD 01/27/2025 3:43 PM EDT [facility] Non HDL Chol. (LDL+VLDL) 193(H) <145 mg/dL LAB CHEMISTRY METHOD 01/27/2025 3:43 PM EDT [facility] Chol/HDL Ratio 3.9 0.0 - 4.4 LAB CHEMISTRY METHOD 01/27/2025 3:43 PM EDT [facility] Blood Venous blood specimen / Unknown Venipuncture / Unknown 01/27/2025 10:44 AM EDT 01/27/2025 10:44 AM EDT us Shira Mike [facility] LAB BLOOD ORDERABLES Final Resul t [facility] [address] [place] [address], * (ABNORMAL) Comprehensive metabolic panel (01/27/2025 10:44 AM EDT) Sodium 140 133 - 145 mmol/L LAB CHEMISTRY METHOD 01/27/2025 3:43 PM EDT [facility] Potassium 4.4 3.5 - 5.5 mmol/L LAB CHEMISTRY METHOD 01/27/2025 3:43 PM EDT [facility] Chloride 107 96 - 110 mmol/L LAB CHEMISTRY METHOD 01/27/2025 3:43 PM EDT [facility] CO2 26 21 - 32 mmol/L LAB CHEMISTRY METHOD 01/27/2025 3:43 PM [facility] Anion Gap 7 3 - 11 LAB CHEMISTRY METHOD 01/27/2025 3:43 PM [facility] Glucose 110(H) 70 - 100 mg/dL LAB CHEMISTRY METHOD 01/27/2025 3:43 PM [facility] BUN 15 5 - 25 mg/dL LAB CHEMISTRY METHOD 01/27/2025 3:43 PM [facility] Creatinine 0.70 0.50 - 1.10 mg/dL LAB CHEMISTRY METHOD 01/27/2025 3:43 PM [facility] eGFR 107 >=60 mL/min/1. 73m2 LAB CHEMISTRY METHOD 01/27/2025 3:43 PM [facility] Comment:Calculation based on the Chronic Kidney Disease Epidemiology Collaboration (CKD-EPI) equation refit without adjustment for race. BUN/Creatinine Ratio 21.4 LAB CHEMISTRY METHOD 01/27/2025 3:43 PM [facility] Calcium 9.6 8.5 - 10.5 mg/dL LAB CHEMISTRY METHOD 01/27/2025 3:43 PM [facility] AST (SGOT) 17 10 - 42 unit/L LAB CHEMISTRY METHOD 01/27/2025 3:43 PM [facility] ALT (SGPT) 36 10 - 60 unit/L LAB CHEMISTRY METHOD 01/27/2025 3:43 PM [facility] Alkaline Phosphatase 131(H) 42 - 121 unit/L LAB CHEMISTRY METHOD 01/27/2025 3:43 PM [facility] Total Protein 7.4 6.0 - 8.0 g/dL LAB CHEMISTRY METHOD 01/27/2025 3:43 PM [facility] Albumin 4.2 3.2 - 5.0 g/dL LAB CHEMISTRY METHOD 01/27/2025 3:43 PM [facility] Total Bilirubin 0.5 0.0 - 1.4 mg/dL LAB CHEMISTRY METHOD 01/27/2025 3:43 PM EDT [facility] Blood Venous blood specimen / Unknown Venipuncture / Unknown 01/27/2025 10:44 AM EDT 01/27/2025 10:44 AM EDT us Shira Mike [facility] LAB BLOOD ORDERABLES Final Resul t [facility] [address] [place] [address], [place] [phone] * (ABNORMAL) MG Mammo Digital Diagnostic w [...] biopsy of left breast recommended. MAMMO LOCATION: [facility], [address] [place] [address], [id number], . -------- FINAL REPORT -------- Dictated By: Shilpa Jimenez Dictated Date: 11/02/2024 11:39 ET Assigned Physician: Shilpa Jimenez Reviewed and Electronically Signed By: Shilpa Jimenez Signed Date: 11/02/2024 11:52 ET Workstation ID: [id number] Transcribed By: Self Edit Transcribed Date: 11/02/2024 [...] biopsy of left breast recommended. MAMMO LOCATION: [facility], [address] [place], [place], [address], . -------- FINAL REPORT -------- Dictated By: Shilpa Jimenez Dictated Date: 11/02/2024 11:39 ET Assigned Physician: Shilpa Jimenez Reviewed and Electronically Signed By: Shilpa Jimenez Signed Date: 11/02/2024 11:52 ET Workstation ID: [id number] Transcribed By: Self Edit Transcribed Date: 11/02/2024 11:39 ET us Pedro Milan MD IMG BI PROCEDURES Sara l Result from Last 3 Months or Most Recently Relevant to Health Maintenance Insurance [facility] [employer] Care Teams Bindery Machine Operator Relationship Specialty Start Date End Date Pedro Milan MD [address] [place] [address] PCP - General 09/16/22
--- OUTSIDE RECORDS SUMMARY | 2025-08-01 15:21 | XMS_ITS | Clinical Summary ---
Author Organization [facility] Address [address] [id number] Care Team Providers Care Manager Target Name Role Phone Pedro Milan Primary Care [...] 05/12/2015, 06/26/2008 Colon Cancer Screening (Colonoscopy) 2021 DTap / Tdap / Td (2 - Td or Tdap) 05/12/2025 05/12/2015 COVID-19 Vaccine (3 - 2024-2 6 season) 2025 01/09/2021, 12/19/2020 Influenza Vaccine (#1) 2025 RSV Ped < 20 months Aged Out No longe r eligible based on patient's age to complete this topic Care Teams Manager Target Relationship Specialty Start Date End Date Pedro Milan [employer]BS [address] [place] [address] PCP - General Internal Medicine 01/21/24
== END ==
LOC: HO.SL 13:44
PROVIDERS: PCP Internal Medicine; Visit Provider Registered Nurse
DX: G47.33 Obstructive sleep apnea (adult) (pediatric) (principal); R06.83 Snoring; R40.0 Somnolence
CPT/HCPCS: 95806

== ENCOUNTER → 2025-08-01 13:55 | Outpatient (BNV) | payer OTHER, SELFPAY | PROVIDERS: PCP Internal Medicine; Visit Provider Internal Medicine | DX: R06.83 Snoring (principal) | CPT/HCPCS: 95806 ==

== ENCOUNTER 2025-08-19 10:23 | Outpatient (AMB) | payer OTHER, SELFPAY ==
--- NOTE | 2025-08-19 11:33 | A.OFFVIS_ITS ---
Intake Visit Reasons: after testing Allergies sulfamethoxazole (From Bactrim) Allergy (Verified 08/19/25 11:41) Hives trimethoprim (From Bactrim) Allergy (Verified 08/19/25 11:41) Hives Medication List - Last Reconciled 08/19/25 by Yamilet Selby CNP azithromycin For 250 mg dose pack: take 500 mg today (day 1), then 250 mg for 4 days (days 2-5) benzonatate 100 mg PO TID PRN gabapentin 300 mg PO Q8H ibuprofen 600 mg PO Q6H PRN levetiracetam 750 mg PO BID 90 days losartan 100 mg PO DAILY meloxicam 15 mg PO DAILY ondansetron 4 mg PO Q8H PRN paroxetine HCl 30 mg PO QAM propranolol ER 80 mg PO DAILY sumatriptan succinate 50 mg PO DAILY PRN zolpidem 5 mg PO BEDTIME PRN HPI Comments Details: 50-year-old woman with the anemia, asthma, migraine headaches, and seizure disorder. She has been out of work since 12/2022 due to work related injury. She was following with [facility] and [facility] for neck pain and [facility] for shoulder and low back pain. Her last documented seizure was 12/2023. No seizures. She was getting about 10 migraines/month. She could get few migraines one week and then could go a week without any. Sumatriptan as needed helped. She had some lightheaded dizziness when changing positions quickly. No falls. Sleep was okay with medication. She also has some intermittent numbness and tingling to both arms and legs. She tried and failed injections to neck and surgical intervention was being considered, but apparently C-Spine MRI was not approved. [facility] Medical History (Updated 05/30/25 @ 15:53 by Yamilet Selby CNP) Cerebral microvascular disease Hypertension Anxiety Migraine without aura Epilepsy Social History (System 09/25/22 @ 14:45 by Inessa Carrion) Alcohol intake: current Alcohol intake frequency: holidays/special occasions only Review of Systems Const Denies chills, Denies daytime sleepiness, Reports difficulty sleeping, Denies fatigue, Denies fever(s), Denies frequent falls, Reports headache(s), Denies increased appetite, Denies poor appetite, Reports snoring, Denies weakness, Denies weight gain and Denies weight loss Eyes Denies loss of vision ENT Denies vertigo, Reports dizziness and Reports headache(s) Card Denies chest pain at rest, Denies chest pain with activity, Denies syncope, Denies leg edema and Denies palpitations Resp Reports snoring GI Denies constipation, Denies heartburn, Denies diarrhea and Denies nausea Denies urinary frequency, Denies urinary incontinence and Denies urinary urgency Musc Denies abnormal gait, Reports numbness and Reports tingling Skin/Breast Denies dry skin and Denies rash Neuro Denies abnormal gait, Denies vertigo, Reports dizziness, Denies syncope, Denies frequent falls, Reports headache(s), Denies lack of coordination, Denies loss of vision, Denies memory loss, Reports numbness, Denies restless legs, Reports seizure-like activity, Reports tingling, Denies paresthesias, Denies tremor(s) and Denies weakness Psych Reports anxiety, Reports depression, Denies auditory hallucinations, Denies memory loss, Denies visual hallucinations and Denies suicidal ideation Endo Denies fatigue and Denies palpitations Physical Exam Const Other: General Appearance:? normal, in no acute distress. Skin:? no rashes, no significant birthmarks. Heart:? S1, S2 normal, no murmurs. Lungs:? clear anteriorly and posteriorly. Extremities:? no edema. Psych:? alert, oriented, cognitive function intact, cooperative with exam. Neuro Other: Mental Status:?Normal attention, orientation, memory and affect.? Cranial Nerves:?Pupils are equal, round and reactive to light. External occular muscles are intact. Visual jerome are full. Face is symmetrical. Facial sensations are normal. Tongue is midline. Palate elevates symmetrically. Shoulder shrugging is normal. Hearing to bedside conversation is normal. Sensory Exam:?....? Coordination:?No ataxia,?no titubation.? Gait Exam: Within normal limits. Cerebellar Signs:?Tsrtal-pz-slie is okay. Extrapyramidal System:?No tremor, rigidity with normal facial expressions.? Pronator Drift:?Not present.? Involuntary Movements:?No tremors seen.? Speech:?Normal.? Results Reviewed Results Reviewed: Laboratory Tests 06/15/25 15:22 [address]etir[address]am [address] [address] Electroencephalogram Report Signed Patient: Amrita Glez MR#: [id number] : 1975 Acct:[id number] Age/Sex: 50 / F ADM Date: 06/15/25 Loc: HO.NEURO Attending Dr: Yamilet Selby CNP Ordering Physician: Yamilet Selby CNP Date of Service: 06/15/25 Procedure(s): EEG electroencephalogram Accession Number(s): [id number] cc: Pedro Milan MD~ This is a 16 channel EEG with an EKG lead. Patient is reported awake during the tracing. Background EEG rhythm is about 10 hertz 5-20 microvolt posteriorly and lower amplitude fast anteriorly. Photic stimulation does not produce any significant driving. Hyperventilation is unremarkable. No sharp wave spikes or paroxysmal tendency noted. Impression: Unremarkable EEG Dictated By: Leodan Khoury MD Signed By: <Electronically signed by Leodan Khoury MD> 06/16/[address] [address] Holter Monitor Report Signed Patient: Amrita Glez MR#: [id number] : 1975 Acct:[id number] Age/Sex: 50 / F ADM Date: 06/15/25 Loc: HO.NEURO Attending Dr: Yamilet Selby CNP Ordering Physician: Yamilet Selby CNP Date of Service: 06/15/25 Procedure(s): ECG holter monitor 48 hour Accession Number(s): cc: Yamilet Selby CNP~ Conclusion: 1. Patient was monitored for total period of 2 days 2. Baseline was normal sinus rhythm with average heart of 76 beats per minute 3. No significant arrhythmias or pauses noted 4. Patient marked the counter 8 times with various symptoms including shortness of breath, dizziness, chest pain, palpitations, correlating with sinus rhythm Dictated By: Tobi Griffin MD Signed By: <Electronically signed by Tobi Griffin MD> 06/24/25 1533 Home Sleep Study 08/01/2025: AIDEE: 0.1, moderate amount of snoring for 22% of sleep time Amb EEG at [facility] in 2021: L temp sharps MRI brain WWO at [facility] in Sep 2022: mild cortical parietal atrophy EEG at office in April 2020: WNL MRI brain WWO at [facility] in May 2017: WNL EEG at office in April 2017: WNL Assessment & Plan Assessment & Plan (1) Epilepsy: Code(s): G40.909 - Epilepsy, unspecified, not intractable, without status epilepticus Category: Medical Qualifiers: Epilepsy type: unspecified Intractability: not intractable Status epilepticus: without status epilepticus Qualified Code(s): G40.909 - Epilepsy, unspecified, not intractable, without status epilepticus Plan: Results reviewed: * Levetiracetam level: WNL * EEG 06/16/2025: Unremarkable * Holter 06/24/2025: Baseline NSR, average HR 76, no significant arrhythmias or pauses, patient marked symptoms (SOB, dizziness, CP/palpitations) correlating with sinus rhythm Continue levetiracetam 750mg 1 tablet twice a day. (2) Migraine without aura: Code(s): G43.009 - Migraine without aura, not intractable, without status migrainosus Category: Medical Qualifiers: Intractability: not intractable Status migrainosus presence: without status migrainosus Qualified Code(s): G43.009 - Migraine without aura, not intractable, without status migrainosus Plan: Continue propranolol ER 80mg 1 capsule daily Continue sumatriptan 50mg 1 tablet as needed for migraine Continue ondansetron 4mg 1 tablet as needed for nausea (3) Migraine equivalent: Code(s): G43.109 - Migraine with aura, not intractable, without status migrainosus Category: Medical (4) DANIEL (obstructive sleep apnea): Code(s): G47.33 - Obstructive sleep apnea (adult) (pediatric) Category: Medical Plan: Home sleep study showed moderate amount of snoring. Plan Meds tried: propranolol, topiramate, amitriptyline, Aimovig, sumatriptan, Motrin, Tylenol Medications: Changed From sumatriptan succinate 50 mg PO DAILY PRN To sumatriptan succinate 50 mg PO DAILY PRN 10 tabs 5RF migraine headache 30 days From propranolol ER 80 mg PO DAILY To propranolol ER 80 mg PO DAILY 90 caps 1RF 90 days From ondansetron 4 mg PO Q8H PRN 10 tabs 0RF nausea and vomiting To ondansetron 4 mg PO Q8H PRN 10 tabs 5RF nausea and vomiting 30 days Refilled levetiracetam 750 mg PO BID 180 tabs 1RF 90 days Coding Level of Care Code Est Pt Level 4 (04540) Diagnoses Nonintractable epilepsy without status epilepticus, unspecified epilepsy type G40.909 Epilepsy type: unspecified Intractability: not intractable Status epilepticus: without status epilepticus Migraine without aura and without status migrainosus, not intractable G43.009 Intractability: not intractable Status migrainosus presence: without status migrainosus Migraine equivalent G43.109 DANIEL (obstructive sleep apnea) G47.33
--- OUTSIDE RECORDS SUMMARY | 2025-08-19 12:26 | XMS_ITS | Clinical Summary ---
Author Organization [facility] Address [address] [id number] Care Team Providers Care Sponge Diver Name Role Phone Pedro Milan Primary Care [...] age to complete this topic Care Teams Sponge Diver Relationship Specialty Start Date End Date Pedro Milan [employer]BS [address] [place] [address] PCP - General Internal Medicine 01/21/24
--- OUTSIDE RECORDS SUMMARY | 2025-08-19 12:27 | XMS_ITS | Clinical Summary ---
Author Organization [facility] [address] [place] [address] [address] [place] [address] Phone Care Team Providers Care Manager Hardware Name Role Phone Pedro Milan MD Primary [...] (seven) days. 2 mL 01/25/20 25 Active losartan (COZAAR) 100 mg tablet TAKE 1 TABLET BY MOUTH EVERY DAY 90 tablet 1 03/21/20 25 Active Ventolin HFA 90 mcg/actuation inhalerIndication s:Mild intermittent asthma without complication INHALE 2 PUFFS BY MOUTH EVERY 4 (FOUR) HOURS IF NEEDED FOR WHEEZING OR SHORTNESS OF BREATH. 18 each 05/30/20 25 Active zolpidem (AMBIEN) 5 mg tablet Take 1 tablet (5 mg total) by mouth at bedtime as needed for sleep. Max Daily Amount: 5 mg 30 tablet 05/31/20 25 Active atorvastatin (LIPITOR) 20 mg tablet TAKE 1 TABLET (20 MG TOTAL) BY MOUTH ONE TIME EACH DAY 90 tablet 1 08/04/20 25 Active PARoxetine (PAXIL) 30 mg tablet TAKE 1 TABLET (30 MG TOTAL) BY MOUTH 1 (ONE) TIME EACH DAY IN THE MORNING. 90 tablet 08/04/20 25 026 Active atorvastatin (LIPITOR) 20 mg tablet Take 1 tablet (20 mg total) by mouth 1 (one) time each day. 30 each 5 02/02/20 25 025 Discontinued PARoxetine (PAXIL) 30 mg tablet TAKE 1 TABLET (30 MG TOTAL) BY MOUTH 1 (ONE) TIME EACH DAY IN THE MORNING. 90 tablet 05/03/20 25 025 Discontinued Active Problems Problem Noted Date [...] Administration Dates Next Due Influenza, Unspecified 08/02/2022,07/23/2016 Nanophthalmics SARS-CoV-2 COVID-19, mRNA, LNP-S, preservative free 01/09/2021,12/19/2020 [...] COMMENT: fibroid embolization OTHER SURGICAL HISTORY PROCEDURE: ND COLPOPEXY VAGINAL EXTRAPERITONEAL APPROACH OTHER SURGICAL HISTORY PROCEDURE: ND REPAIR RECTOCELE SEPARATE PROCEDURE COLONOSCOPY 02/07/20 PROCEDURE: HISTORICAL COLONOSCOPY; COMMENT: No gross masses or polyps, poor prep-diminutive polyps could not be ruled out. Some diverticulosis distal sigmoid colon and spasticity present. COLONOSCOPY 07/03/20 PROCEDURE: HISTORICAL COLONOSCOPY ESOPHAGOGASTRODUODENOSCOPY 07/03/20 PROCEDURE: ND ESOPHAGOGASTRODUODENOSCOPY TRANSORAL DIAGNOSTIC BREAST BIOPSY 2016 Left [...] for your loved ones. For example, child and family services worker or elderly care for an older adult? [...] Tdap) 05/12/2025 05/12/2015 COVID-19 Vaccine (3 - season) 2025 01/09/2021, 12/19/2020 Influenza Vaccine [...] of3 resultswithin the time period is included. us Provider [facility] LAB BLOOD ORDERABLES Fin al Result * External Neurology Report (06/15/2025) us Provider [facility] NEUROLOGY ORDERABLES Fin al [...] Resul t [facility] [address] [place] [address], * (ABNORMAL) Comprehensive metabolic panel (01/27/2025 10:44 AM EDT) Sodium 140 133 - 145 mmol/L LAB CHEMISTRY METHOD 01/27/2025 3:43 PM EDT [facility] Potassium 4.4 3.5 - 5.5 mmol/L LAB CHEMISTRY METHOD 01/27/2025 3:43 PM [facility] Chloride 107 96 - 110 mmol/L LAB CHEMISTRY METHOD 01/27/2025 3:43 PM [facility] CO2 26 21 - 32 mmol/L LAB CHEMISTRY METHOD 01/27/2025 3:43 PM [facility] Anion Gap 7 3 - 11 LAB CHEMISTRY METHOD 01/27/2025 3:43 PM [facility] Glucose 110(H) 70 - 100 mg/dL LAB CHEMISTRY METHOD 01/27/2025 3:43 PM [facility] BUN 15 5 - 25 mg/dL LAB CHEMISTRY METHOD 01/27/2025 3:43 PM [facility] Creatinine 0.70 0.50 - 1.10 mg/dL LAB CHEMISTRY METHOD 01/27/2025 3:43 PM [facility] eGFR 107 >=60 mL/min/1. 73m2 LAB CHEMISTRY METHOD 01/27/2025 3:43 PM [facility] Comment:Calculation based on the Chronic Kidney Disease Epidemiology Collaboration (CKD-EPI) equation refit without adjustment for race. BUN/Creatinine Ratio 21.4 LAB CHEMISTRY METHOD 01/27/2025 3:43 PM [facility] Calcium 9.6 8.5 - 10.5 mg/dL LAB CHEMISTRY METHOD 01/27/2025 3:43 PM [facility] AST (SGOT) 17 10 - 42 unit/L LAB CHEMISTRY METHOD 01/27/2025 3:43 PM [facility] ALT (SGPT) 36 10 - 60 unit/L LAB CHEMISTRY METHOD 01/27/2025 3:43 PM [facility] Alkaline Phosphatase 131(H) 42 - 121 unit/L LAB CHEMISTRY METHOD 01/27/2025 3:43 PM [facility] Total Protein 7.4 6.0 - 8.0 g/dL LAB CHEMISTRY METHOD 01/27/2025 3:43 PM EDT [facility] Albumin 4.2 3.2 - 5.0 g/dL LAB CHEMISTRY METHOD 01/27/2025 3:43 PM EDT [facility] Total Bilirubin 0.5 0.0 - 1.4 mg/dL LAB CHEMISTRY METHOD 01/27/2025 3:43 PM EDT [facility] Blood Venous blood specimen / Unknown Venipuncture / Unknown 01/27/2025 10:44 AM EDT 01/27/2025 10:44 AM EDT us Shira Mike [facility] LAB BLOOD ORDERABLES Final Resul t [facility] [address] [place] [address], [place] [phone] * (ABNORMAL) MG Mammo Digital Diagnostic w [...] biopsy of left breast recommended. MAMMO LOCATION: [facility], [address] [place] [address], [id number], . -------- FINAL REPORT -------- Dictated By: Shilpa Jimenez Dictated Date: 11/02/2024 11:39 ET Assigned Physician: Shilpa Jimenez Reviewed and Electronically Signed By: Shilpa Jimenez Signed Date: 11/02/2024 11:52 ET Workstation ID: [id number] Transcribed By: Self Edit Transcribed Date: 11/02/2024 [...] biopsy of left breast recommended. MAMMO LOCATION: [facility], [address] [place] [address], [id number], . -------- FINAL REPORT -------- Dictated By: Shilpa Jimenez Dictated Date: 11/02/2024 11:39 ET Assigned Physician: Shilpa Jimenez Reviewed and Electronically Signed By: Shilpa Jimenez Signed Date: 11/02/2024 11:52 ET Workstation ID: [id number] Transcribed By: Self Edit Transcribed Date: 11/02/2024 11:39 ET Pedro Milan MD IMG BI PROCEDURES Sara l Result from Last 3 Months or Most Recently Relevant to Health Maintenance Insurance [facility] Care Teams Manager Hardware Relationship Specialty Start Date End Date Pedro Milan MD [address] [place] [id number] PCP - General 09/16/22
== END 2025-08-19 11:53 | disposition home or self-care (01) ==
LOC: HO.HSM 10:24
PROVIDERS: PCP Internal Medicine; Visit Provider Registered Nurse
DX: G40.909 Epilepsy, unspecified, not intractable, without status epilepticus (principal); G43.009 Migraine without aura, not intractable, without status migrainosus; G43.109 Migraine with aura, not intractable, without status migrainosus; G47.33 Obstructive sleep apnea (adult) (pediatric)
CPT/HCPCS: 99214

== ENCOUNTER → 2025-08-19 10:23 | Outpatient (BNVA) | payer OTHER, SELFPAY | PROVIDERS: PCP Internal Medicine; Visit Provider Registered Nurse | DX: G40.909 Epilepsy, unspecified, not intractable, without status epilepticus (principal); G43.109 Migraine with aura, not intractable, without status migrainosus; G47.33 Obstructive sleep apnea (adult) (pediatric); Z79.899 Other long term (current) drug therapy | CPT/HCPCS: 99212 ==